=== PATIENT | female | born 1960 | race African-American/Black ===

== ENCOUNTER 2016-09-16 01:46 | Emergency (ER) | payer MEDICAID ==
[~2016-09-16] VITALS: Ht 160 cm; Wt 61.2 kg
[~2016-09-16 01:46] MED LIST: COGENTIN1 MG ORAL; HALOPERIDOL1 MG ORAL; HYDROCODON-ACE1 EA15 ORAL; NORCO 5-325 TA1 EACH ORAL; TRAMADOL HCL50 MG ORAL
[2016-09-16 01:55] VITALS: BP 128/74
[2016-09-16] MEDS ORDERED: CYCLOBENZAPRINE10 MG ORAL (03:45)
[2016-09-16] MEDS ORDERED: Cyclobenzaprine 10mg Tab ORAL ONE (03:45)
[2016-09-16 03:50] VITALS: BP 122/76
--- NOTE | 2016-09-16 03:50 | Emergency Room Report ---
History of Present Illness General Chief Complaint: Pain Source: Patient Present Illness HPI [id number] presents with "pain to legs" for "long time". States she had a cardiac cath at outside hospital, developed blood clot in right groin, had clot removed , but states she has had leg pain since. has been taking tylenol with no improvement. States she cant have ibuprofen. States she has "a 100 of robaxin at home" and "that doesnt work either." States allergy to toradol but not sure what the allergy is. States "I've been here a bunch of times before and always got [place]." Review of EMR does indicate previous Rx for Livingston from here. Denies calf swelling or needing to be on AC previously for DVT/PE. Denies fever /chills, rash to lower extremities. Specific request made for norco. Allergies: Coded Allergies: KETOROLAC (Verified Allergy, Severe, 07/25/15) PENICILLINS (Verified Allergy, Severe, 07/25/15) IODINE (Verified Allergy, Intermediate, 07/25/15) TRAMADOL (Verified Allergy, Unknown, 08/22/15) Patient History Past Medical History: none Past Surgical History: none Pertinent Family History: none Social History: Denies: alcohol use, drug use, smoking Now: No Immunizations: UTD Reviewed Nursing Documentation: PMH: Agreed, PSxH: Agreed Nursing Documentation-PMH Hx Cardiac Problems: Yes - CAD Hx Hypertension: Yes Hx Pacemaker: No Hx Asthma: No - Bronchitis Hx COPD: No Hx Diabetes: Yes Hx Cancer: No Hx Gastrointestinal Problems: No Hx Dialysis: No Hx Neurological Problems: No Hx Cerebrovascular Accident: No Hx Seizures: Yes Review of Systems All Other Systems: negative except mentioned in HPI Physical Exam Vital Signs Date Time Temp Pulse Resp B/P Pulse Ox O2 Delivery O2 Flow Rate FiO2 09/16/16 01:49 98.4 94 18 132/73 100 Room Air Sp02 EP Interpretation: reviewed, normal General Appearance: normal inspection, well appearing, no apparent distress, alert Head: atraumatic ENT: normal ENT inspection, hearing grossly normal, normal voice Neck: normal inspection, full range of motion, supple, no bony tend Respiratory: normal inspection Cardiovascular #1: regular rate, rhythm, no edema Gastrointestinal: normal inspection, normal bowel sounds, non tender, soft, no guarding, no hernia Genitourinary: no CVA tenderness Musculoskeletal: normal inspection, back normal, normal range of motion, Liv' s Sign negative Neurologic: normal inspection, alert, oriented x3, responsive, gamma ray operator III-XII nml as tested, motor strength/tone normal, speech normal Psychiatric: normal inspection, judgement/insight normal, mood/affect normal Skin: normal inspection, normal color, no rash Lymphatic: normal inspection Medical Decision Making Diagnostic Impression: Primary Impression: Pain Additional Impressions: Chronic pain Qualified Codes: G89.29 - Other chronic pain Drug-seeking behavior ER Course 55 YO F with chronic pain. VSS. Afebrile. Multiple alleged allergies to common analgesics Specific request made for [place] After much discussion, patient agreed to try flexeril but when RN went to give, patient refused med, took Rx for Flexeril and left ED We encouraged her to go to Pain electronics specialist appt this week DC home Last Vital Signs Date Time Temp Pulse Resp B/P Pulse Ox O2 Delivery O2 Flow Rate FiO2 09/16/16 01:55 98.2 79 17 128/74 100 Room Air Status: improved Disposition: HOME, SELF-CARE Condition: Improved Scripts Cyclobenzaprine Hcl* (FLEXERIL*) 10 Mg Tablet 10 MG ORAL BID Y for Muscle Spasm, #20 TAB Prov: MAXWELL LIZAMA M.D. 09/16/16 Referrals: [facility],REFERRING (PCP) Patient Instructions: Chronic Pain Additional Instructions: - STOP taking Tylenol - Take Flexeril twice a day for pain but do NOT drive or operate machinery while taking - Please go to your pain career specialist appt on Monday MAXWELL LIZAMA M.D. Sep 16, 2016 03:50
== END 2016-09-16 03:50 | disposition home or self-care (01) ==
LOC: EMR 02:12
DX: M79.605 Pain in left leg (principal); M79.604 Pain in right leg; G89.29 Other chronic pain; Z76.5 Malingerer [conscious simulation]; Z88.0 Allergy status to penicillin; Z91.09 Other allergy status, other than to drugs and biological substances; I25.10 Atherosclerotic heart disease of native coronary artery without angina pectoris; I10 Essential (primary) hypertension; E11.9 Type 2 diabetes mellitus without complications
CPT/HCPCS: 99283

== ENCOUNTER 2017-03-11 17:23 | Emergency (ER) | payer MEDICAID ==
[~2017-03-11] VITALS: Ht 165.1 cm; Wt 59.0 kg
[~2017-03-11 17:23] MED LIST changes: +CYCLOBENZAPRINE10 MG ORAL
[2017-03-11 17:49] VITALS: BP 144/68
[2017-03-11 19:16] VITALS: BP 144/68
[2017-03-11] MEDS ORDERED: Tylenol #3 tab (300mg/30mg) ORAL ONE (20:15)
[2017-03-11 20:55] LABS: BASOPHILS % (AUTO) 2.2 % (0.0-2.0); EOSINOPHILS % (AUTO) 1.2 % (0.0-3.0); LYMPHOCYTES % (AUTO) 47.4 % (20.0-45.0); MEAN CORPUSCULAR HEMOGLOBIN 33.1 PG (27.0-31.0); MEAN CORPUSCULAR HGB CONC 34.5 G/DL (32.0-36.0); MEAN CORPUSCULAR VOLUME 96 FL (80-99); MEAN PLATELET VOLUME 6.7 FL (6.5-10.1); MONOCYTES % (AUTO) 9.9 % (1.0-10.0); NEUTROPHILS % (AUTO) 39.2 % (45.0-75.0); PLATELET COUNT 183 K/UL (150-450); RED BLOOD COUNT 3.35 M/UL (4.20-5.40); RED CELL DISTRIBUTION WIDTH 12.9 % (11.6-14.8); WHITE BLOOD COUNT 5.8 K/UL (4.8-10.8)
[2017-03-11 21:15] VITALS: BP 138/64
[2017-03-11] MEDS ORDERED: Metoclopramide 10mg/10ml Liq ORAL ONE (21:15)
[2017-03-11 21:35] LABS: ACETAMINOPHEN < 10 ug/mL (10-30); ALANINE AMINOTRANSFERASE 12 U/L (3-33); ALBUMIN/GLOBULIN RATIO 1.2 (1.0-2.7); ALCOHOL < 10 mg/dL; ANION GAP 14 (5-15); ASPARTATE AMINO TRANSFERASE 15 U/L (5-40); CALCIUM 8.7 mg/dL (8.6-10.2); CARBON DIOXIDE 22 mEQ/L (20-30); CHLORIDE 101 mEQ/L (98-107); CREATININE 1.5 mg/dL (0.5-0.9); GLOMERULAR FILTRATION RATE 43.4 mL/min (>60); HEMOLYSIS 6; POTASSIUM 4.5 mEQ/L (3.4-4.9); SODIUM 137 mEQ/L (135-145); TOTAL PROTEIN 6.5 g/dL (6.6-8.7)
--- NOTE | 2017-03-11 22:14 | Emergency Room Report ---
History of Present Illness General Chief Complaint: Behavioral Complaint Source: Patient, EMS (AUDELIA DUTTA) Present Illness HPI The patient is a 56-year-old female brought in by ambulance in custody for hallucinations and homicidal ideation. She states that she is hearing voices to hurt others. She also admits to a 10 out of 10 total body pain but denies any injury. She denies psychiatric history. She denies drug use. She denies symptoms including nausea, vomiting, fever, chills, chest pain, shortness of breath (AUDELIA DUTTA.AJa) Allergies: Coded Allergies: KETOROLAC (Verified Allergy, Severe, 07/25/15) PENICILLINS (Verified Allergy, Severe, 07/25/15) IODINE (Verified Allergy, Intermediate, 07/25/15) TRAMADOL (Verified Allergy, Unknown, 08/22/15) Uncoded Allergies: TORADOL RISPIRADOL PCN IODINE (Allergy, Unknown, 03/11/17) Patient History Past Medical History: see triage record Pertinent Family History: none Reviewed Nursing Documentation: PMH: Agreed, PSxH: Agreed (AUDELIA DUTTA PJaAJa) Nursing Documentation-PMH Hx Cardiac Problems: Yes - CAD Hx Hypertension: Yes Hx Pacemaker: No Hx Asthma: No - Bronchitis Hx COPD: No Hx Diabetes: Yes Hx Cancer: No Hx Gastrointestinal Problems: No Hx Dialysis: No History Of Psychiatric Problem: Yes Hx Neurological Problems: No Hx Cerebrovascular Accident: No Hx Seizures: Yes (AUDELIA DUTTA P.AJa) Review of Systems All Other Systems: negative except mentioned in HPI (AUDELIA DUTTA P.AJa) Physical Exam Vital Signs Date Time Temp Pulse Resp B/P Pulse Ox O2 Delivery O2 Flow Rate FiO2 03/11/17 17:13 99.0 96 18 144/68 99 Room Air Sp02 EP Interpretation: reviewed, normal General Appearance: no apparent distress, alert, GCS 15, non-toxic Head: normocephalic, atraumatic Eyes: bilateral eye EOMI, bilateral eye PERRL ENT: hearing grossly normal, normal pharynx, no angioedema, normal voice Neck: full range of motion, supple/symm/no masses Respiratory: chest non-tender, lungs clear, normal breath sounds, speaking full sentences Cardiovascular #1: regular rate, rhythm, no edema Gastrointestinal: normal bowel sounds, non tender, soft, non-distended, no guarding, no rebound Musculoskeletal: back normal, gait/station normal, normal range of motion, non- tender Neurologic: alert, oriented x3, responsive, motor strength/tone normal, sensory intact, speech normal Psychiatric: judgement/insight normal, memory normal, mood/affect normal, no suicidal/homicidal ideation Skin: normal color, no rash, warm/dry, well hydrated (AUDELIA DUTTA) Medical Decision Making PA Attestation Dr. Matt is my supervising physician. Patient management was discussed with my supervising physician (AUDELIA DUTTA) Diagnostic Impression: Primary Impression: Behavioral disorder ER Course The patient is a 56-year-old female presenting for homicidal ideation and auditory hallucinations Differential diagnoses considered but not limited to suicidal ideation, homicidal ideation, depression, psychosis, drug abuse PE unremarkable. NAD. Pt is resting. RRR. Lungs CTA bilat Labs significant for hyperglycemia and + cocaine. She is given subq insulin. Tylenol #3 given for pain. The patient is on a 5150 placed by police and we will attempt to transfer patient to psychiatric facility and/or consult our psychiatrist. This patient is signed out to Dr. Diaz at this time Laboratory Tests Test 03/11/17 18:25 03/11/17 20:35 Urine Opiates Screen Negative (NEGATIVE) Urine Barbiturates Screen Negative (NEGATIVE) Phencyclidine (PCP) Screen Negative (NEGATIVE) Urine Amphetamines Screen Negative (NEGATIVE) Urine Benzodiazepines Screen Negative (NEGATIVE) Urine Cocaine Screen Positive (NEGATIVE) H Urine Marijuana (THC) Screen Negative (NEGATIVE) White Blood Count 5.8 K/UL (4.8-10.8) Red Blood Count 3.35 M/UL (4.20-5.40) L Hemoglobin 11.1 G/DL (12.0-16.0) L Hematocrit 32.1 % (37.0-47.0) L Mean Corpuscular Volume 96 FL (80-99) Mean Corpuscular Hemoglobin 33.1 PG (27.0-31.0) H Mean Corpuscular Hemoglobin Concent 34.5 G/DL (32.0-36.0) Red Cell Distribution Width 12.9 % (11.6-14.8) Platelet Count 183 K/UL (150-450) Mean Platelet Volume 6.7 FL (6.5-10.1) Neutrophils (%) (Auto) 39.2 % (45.0-75.0) L Lymphocytes (%) (Auto) 47.4 % (20.0-45.0) H Monocytes (%) (Auto) 9.9 % (1.0-10.0) Eosinophils (%) (Auto) 1.2 % (0.0-3.0) Basophils (%) (Auto) 2.2 % (0.0-2.0) H Sodium Level 137 mEQ/L (135-145) Potassium Level 4.5 mEQ/L (3.4-4.9) Chloride Level 101 mEQ/L (98-107) Carbon Dioxide Level 22 mEQ/L (20-30) Anion Gap 14 (5-15) Blood Urea Nitrogen 39 mg/dL (7-23) H Creatinine 1.5 mg/dL (0.5-0.9) H Estimate Glomerular Filtration Rate 43.4 mL/min (>60) Glucose Level 328 mg/dL (74-106) H Calcium Level 8.7 mg/dL (8.6-10.2) Total Bilirubin < 0.2 mg/dL (0.0-1.2) Aspartate Amino Transferase (AST) 15 U/L (5-40) Alanine Aminotransferase (ALT) 12 U/L (3-33) Alkaline Phosphatase 169 U/L (35-104) H Total Protein 6.5 g/dL (6.6-8.7) L Albumin 3.6 g/dL (3.5-5.2) Globulin 2.9 g/dL Albumin/Globulin Ratio 1.2 (1.0-2.7) Salicylates Level < 1 mg/dL (10-30) L Acetaminophen Level < 10 ug/mL (10-30) L Serum Alcohol < 10 mg/dL Lab Results Impression CBC unremarkable. No leukocytosis. CMP shows hyperglycemia and elevated BUN/Cr Drug screen positive for cocaine (AUDELIA DUTTA P.A.) ER Course Patient was endorsed to me for the psychiatric evaluation the patient after a being placed on a 5150 by police. The patient was noted to have a urine tox screen which was positive for substance. The patient was given Ativan for agitation. Patient was seen by Dr. Grey and was cleared for discharge by her. Patient was given referral for placement (Solomon White) Last Vital Signs Date Time Temp Pulse Resp B/P Pulse Ox O2 Delivery O2 Flow Rate FiO2 03/11/17 17:49 99.0 96 18 144/68 99 Room Air Status: improved (AUDELIA DUTTA) Status: improved (Solomon White) Disposition: HOME, SELF-CARE Condition: Stable Signed Out To: Dr. Diaz (AUDELIA DUTTA) Referrals: [facility],REFERRING (PCP) AUDELIA DUTTA Mar 11, 2017 22:14 Solomon White Mar 12, 2017 10:28
[2017-03-11 23:45] VITALS: BP 144/66
[2017-03-12 01:18] VITALS: BP 147/69
[2017-03-12 03:33] VITALS: BP 137/70
[2017-03-12 05:21] VITALS: BP 111/66
[2017-03-12] MEDS ORDERED: Acetaminophen 500mg (ES) tab ORAL ONE (05:45)
[2017-03-12 07:05] VITALS: BP 118/76
[2017-03-12] MEDS ORDERED: LORazepam 1mg tab ORAL ONE (07:30)
[2017-03-12 10:20] VITALS: BP 156/70
--- NOTE | 2017-03-12 14:56 | Consultation ---
History of Present Illness General Chief Complaint: Behavioral Complaint Present Illness HPI The patient is a 56-year-old female brought in by ambulance in custody for hallucinations and homicidal ideation. She states that she is hearing voices to hurt others. during the eval the pt stated that she is interested in placement and would not go to the house she is currently living. the pt was given housing info. the pt was not endorsing psychotic sxs. she was told to cont taking her meds and see her psychiatrist. Allergies: Coded Allergies: KETOROLAC (Verified Allergy, Severe, 07/25/15) PENICILLINS (Verified Allergy, Severe, 07/25/15) IODINE (Verified Allergy, Intermediate, 07/25/15) TRAMADOL (Verified Allergy, Unknown, 08/22/15) Uncoded Allergies: TORADOL RISPIRADOL PCN IODINE (Allergy, Unknown, 03/11/17) Medication History Scheduled Benztropine Mesylate (Cogentin 1mg*), 1 MG ORAL DAILY, (Reported) Haloperidol* (Haldol*), 1 MG ORAL EVERY 6 HOURS, (Reported) Scheduled PRN Cyclobenzaprine Hcl* (Flexeril*), 10 MG ORAL BID PRN for Muscle Spasm Hydrocodone Bit/Acetaminophen 5-325* ([place] 5-325*), 1 TAB ORAL Q6H PRN for For Pain Hydrocodone Bit/Acetaminophen 5-325* ([place] 5-325*), 1 TAB ORAL Q6H PRN for For Pain Hydrocodone Bit/Acetaminophen 5-325* ([place] 5-325*), 1 TAB ORAL Q6H PRN for For Pain Hydrocodone/Acetaminophen 5-325* (Hydrocodone/Acetaminophen 5-325*), 1 TAB ORAL Q4H PRN for For Pain, (Reported) Tramadol Hcl* (Ultram*), 50 MG ORAL Q6H PRN for For Pain, (Reported) Patient History History Provided By: Patient, Medical Record, PMD Healthcare decision maker Resuscitation status Advanced Directive on File Past Medical/Surgical History Past Medical/Surgical History: (1) Wound dehiscence (2) Postoperative pain (3) Encounter for wound re-check (4) Opioid dependence (5) Chronic pain (6) Pain Review of Systems Psychiatric: Reports: anxiety, depressed feelings, emotional problems, prior hx , see HPI Physical Exam General Appearance: no apparent distress, alert, thin Neurologic: alert, oriented x 3, responsive, normal mood/affect Last 24 Hour Vital Signs Date Time Temp Pulse Resp B/P Pulse Ox O2 Delivery O2 Flow Rate FiO2 03/12/17 10:20 108 18 156/70 99 03/12/17 10:20 98.2 108 18 156/70 99 Room Air 03/12/17 07:05 98.3 92 12 118/76 98 Room Air 03/12/17 05:21 98.2 77 18 111/66 96 Room Air 03/12/17 03:33 97.9 86 16 137/70 100 Room Air 03/12/17 01:18 97.7 84 16 147/69 99 Room Air 03/11/17 23:45 98.4 89 18 144/66 99 Room Air 03/11/17 21:23 99.0 03/11/17 21:15 98.7 92 19 138/64 100 Room Air 03/11/17 19:16 99.0 96 18 144/68 99 Room Air 03/11/17 17:49 99.0 96 18 144/68 99 Room Air 03/11/17 17:13 99.0 96 18 144/68 99 Room Air Intake and Output 03/11/17 03/12/17 19:00 07:00 Intake Total 100 ml Balance 100 ml Intake Oral 100 ml # Voids 1 Laboratory Tests Test 03/11/17 18:25 03/11/17 20:35 Urine Opiates Screen Negative (NEGATIVE) Urine Barbiturates Screen Negative (NEGATIVE) Phencyclidine (PCP) Screen Negative (NEGATIVE) Urine Amphetamines Screen Negative (NEGATIVE) Urine Benzodiazepines Screen Negative (NEGATIVE) Urine Cocaine Screen Positive (NEGATIVE) H Urine Marijuana (THC) Screen Negative (NEGATIVE) White Blood Count 5.8 K/UL (4.8-10.8) Red Blood Count 3.35 M/UL (4.20-5.40) L Hemoglobin 11.1 G/DL (12.0-16.0) L Hematocrit 32.1 % (37.0-47.0) L Mean Corpuscular Volume 96 FL (80-99) Mean Corpuscular Hemoglobin 33.1 PG (27.0-31.0) H Mean Corpuscular Hemoglobin Concent 34.5 G/DL (32.0-36.0) Red Cell Distribution Width 12.9 % (11.6-14.8) Platelet Count 183 K/UL (150-450) Mean Platelet Volume 6.7 FL (6.5-10.1) Neutrophils (%) (Auto) 39.2 % (45.0-75.0) L Lymphocytes (%) (Auto) 47.4 % (20.0-45.0) H Monocytes (%) (Auto) 9.9 % (1.0-10.0) Eosinophils (%) (Auto) 1.2 % (0.0-3.0) Basophils (%) (Auto) 2.2 % (0.0-2.0) H Sodium Level 137 mEQ/L (135-145) Potassium Level 4.5 mEQ/L (3.4-4.9) Chloride Level 101 mEQ/L (98-107) Carbon Dioxide Level 22 mEQ/L (20-30) Anion Gap 14 (5-15) Blood Urea Nitrogen 39 mg/dL (7-23) H Creatinine 1.5 mg/dL (0.5-0.9) H Estimat Glomerular Filtration Rate 43.4 mL/min (>60) Glucose Level 328 mg/dL (74-106) H Calcium Level 8.7 mg/dL (8.6-10.2) Total Bilirubin < 0.2 mg/dL (0.0-1.2) Aspartate Amino Transf (AST/SGOT) 15 U/L (5-40) Alanine Aminotransferase (ALT/SGPT) 12 U/L (3-33) Alkaline Phosphatase 169 U/L (35-104) H Total Protein 6.5 g/dL (6.6-8.7) L Albumin 3.6 g/dL (3.5-5.2) Globulin 2.9 g/dL Albumin/Globulin Ratio 1.2 (1.0-2.7) Salicylates Level < 1 mg/dL (10-30) L Acetaminophen Level < 10 ug/mL (10-30) L Serum Alcohol < 10 mg/dL Height (Feet): 5 Height (Inches): 5.00 Weight (Pounds): 130 Assessment/Plan Status: stable Assessment/Plan schizoaffective bipolar by hx the pt is not at imminent dts/sto the pt will be discharged and she was given referrals Ramon Grey M.D. Mar 12, 2017 14:56
== END 2017-03-12 10:20 | disposition home or self-care (01) ==
LOC: EDBD 17:23 → EMR 17:46
DX: F91.9 Conduct disorder, unspecified (principal); R44.0 Auditory hallucinations; R45.850 Homicidal ideations; I25.10 Atherosclerotic heart disease of native coronary artery without angina pectoris; I10 Essential (primary) hypertension; E11.9 Type 2 diabetes mellitus without complications
CPT/HCPCS: 36415; 80053; 80300; 80329; 82962; 85025; 99283; J1815

== ENCOUNTER 2018-01-21 15:20 | Emergency (ER) | payer MEDICAID ==
[~2018-01-21] VITALS: Ht 160 cm; Wt 49.0 kg
[2018-01-21] MEDS ORDERED: Norco 5mg/325mg tab ORAL ONE (16:15)
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
[2018-01-21] MEDS ORDERED: LIDODERM700 M1 TOPIC (16:38)
[2018-01-21] MEDS ORDERED: ROBAXIN-750750 MG PO (16:38)
[2018-01-21 17:06] VITALS: BP 127/65
[2018-01-21 17:28] VITALS: BP 127/65
--- NOTE | 2018-01-22 17:52 | Diagnostic Imaging Report ---
Indication: Pain Technique: XRAY Pelvis 1v Comparison: Correlation made to images of the osseous pelvis from CT of the abdomen and pelvis 12/23/2011 Findings: Bones are demineralized. No definite/displaced acute fractures identified. Hip joints, sacroiliac joints and symphysis pubis are maintained. There are degenerative changes in the lower lumbar spine. Surgical clips noted in the right inguinal region. Impression: Osteopenia. No plain film evidence of acute fracture or dislocation.
--- NOTE | 2018-01-22 17:53 | Diagnostic Imaging Report ---
Indication: Pain Technique: XRAY Hip Routine 2v+ R Comparison: Correlation made to images of the osseous pelvis/right hip from CT of the abdomen and pelvis 12/23/2011 Findings: No plain film evidence of acute fracture or dislocation. Bones are demineralized. There are surgical clips in the right inguinal region. Correlate with surgical history. Pelvic phleboliths are noted. Impression: No plain film evidence of acute fracture.
== END 2018-01-21 17:28 | disposition home or self-care (01) ==
LOC: EMR 16:37
DX: S70.01XA Contusion of right hip, initial encounter (principal); S30.0XXA Contusion of lower back and pelvis, initial encounter; V43.92XA Unspecified car occupant injured in collision with other type car in traffic accident, initial encounter; Y92.481 Parking lot as the place of occurrence of the external cause; I25.10 Atherosclerotic heart disease of native coronary artery without angina pectoris; I10 Essential (primary) hypertension; E11.9 Type 2 diabetes mellitus without complications; Z88.0 Allergy status to penicillin; Z88.5 Allergy status to narcotic agent
CPT/HCPCS: 72170; 99284

== ENCOUNTER 2018-01-29 14:08 | Emergency (ER) | payer MEDICAID ==
[~2018-01-29] VITALS: Ht 162.6 cm; Wt 60.8 kg
[~2018-01-29 14:08] MED LIST changes: +LIDODERM700 M1 TOPIC; +ROBAXIN-750750 MG PO
[2018-01-29] MEDS ORDERED: Morphine Sulfate 2mg/ml Inj IM ONE (14:45)
[2018-01-29] MEDS ORDERED: Methocarbamol 750mg tab ORAL ONE (15:15)
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
[2018-01-29] MEDS ORDERED: TYLENOL EXTRA500 MG ORAL (16:18)
[2018-01-29] MEDS ORDERED: LIDODERM700 M1 TOPIC (16:18)
[2018-01-29] MEDS ORDERED: ROBAXIN-750750 MG PO (16:18)
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
[2018-01-29 18:31] VITALS: BP 136/74
[2018-01-29 18:33] VITALS: BP 136/74
== END 2018-01-29 16:30 | disposition home or self-care (01) ==
LOC: EMR 14:48
DX: G89.29 Other chronic pain (principal); M54.9 Dorsalgia, unspecified; I10 Essential (primary) hypertension; I25.10 Atherosclerotic heart disease of native coronary artery without angina pectoris; E11.9 Type 2 diabetes mellitus without complications; Z88.0 Allergy status to penicillin; Z88.8 Allergy status to other drugs, medicaments and biological substances
CPT/HCPCS: 72131; 72192; 96372; 99284; J2270

== ENCOUNTER 2018-02-05 20:41 | Emergency (ER) | payer MEDICAID ==
[~2018-02-05] VITALS: Ht 162.6 cm; Wt 54.4 kg
[~2018-02-05 20:41] MED LIST changes: +TYLENOL EXTRA500 MG ORAL
[2018-02-05 21:10] VITALS: BP 150/57
[2018-02-05] MEDS ORDERED: Methocarbamol 750mg tab ORAL ONE (21:15)
[2018-02-05] MEDS ORDERED: Morphine Sulfate 2mg/ml Inj IM ONE (21:15)
[2018-02-05] MEDS ORDERED: NORCO 5-325 TA1 EACH ORAL (22:08)
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
[2018-02-05 22:53] VITALS: BP 144/62
[2018-02-05 22:54] VITALS: BP 144/62
== END 2018-02-05 23:08 | disposition home or self-care (01) ==
LOC: EMR 21:10
DX: G89.29 Other chronic pain (principal); M25.551 Pain in right hip; F11.20 Opioid dependence, uncomplicated; I10 Essential (primary) hypertension; E11.9 Type 2 diabetes mellitus without complications
CPT/HCPCS: 96372; 99283; J2270

== ENCOUNTER 2018-02-20 14:25 | Emergency (ER) | payer MEDICAID ==
[~2018-02-20] VITALS: Ht 162.6 cm; Wt 63.5 kg
[2018-02-20 14:41] VITALS: BP 141/62
[2018-02-20] MEDS ORDERED: Meclizine 25mg tab ORAL ONE (15:15)
--- NOTE | 2018-02-20 15:31 | Emergency Room Report ---
History of Present Illness General Chief Complaint: General Complaint Source: Patient (Caty Mehta) Present Illness HPI 57-year-old female presents to the emergency department complaining of 10 out of 10 in severity right-sided rib cage pain. Patient reports she has had intermittent episodes of dizziness which she describes as the room spinning around her which causes her to be nauseated. Patient states that she lost her balance and hit the right side of her rib cage this morning. Pt states pain is exacerbated with deep breaths. Patient denies unilateral weakness, slurred speech, recent URI, or recent head trauma. Denies cough. Denies CP, Palpitations, LOC, AMS, Changes in Vision, paresthesias, or a sudden severe headache. (Caty Mehta) Allergies: Coded Allergies: KETOROLAC (Verified Allergy, Severe, 07/25/15) PENICILLINS (Verified Allergy, Severe, 07/25/15) IODINE (Verified Allergy, Intermediate, 07/25/15) HALOPERIDOL (Verified Allergy, Unknown, 01/21/18) NAPROXEN (Verified Allergy, Unknown, 02/20/18) RISPERIDONE (Verified Allergy, Unknown, 02/05/18) TRAMADOL (Verified Allergy, Unknown, 08/22/15) Uncoded Allergies: TORADOL RISPIRADOL PCN IODINE (Allergy, Unknown, 03/11/17) Patient History Past Medical History: see triage record Past Surgical History: none Pertinent Family History: none Now: No Immunizations: UTD Reviewed Nursing Documentation: PMH: Agreed; PSxH: Agreed (Caty Mehta) Nursing Documentation-PMH Past Medical History: No History, Except For Hx Cardiac Problems: Yes Hx Hypertension: Yes Hx Pacemaker: No Hx Asthma: No - Bronchitis Hx COPD: No Hx Diabetes: Yes Hx Cancer: No Hx Gastrointestinal Problems: No Hx Dialysis: No Hx Neurological Problems: No Hx Cerebrovascular Accident: No Hx Seizures: Yes (Caty Mehta) Review of Systems All Other Systems: negative except mentioned in HPI (Caty Mehta) Physical Exam Vital Signs Date Time Temp Pulse Resp B/P (MAP) Pulse Ox O2 Delivery O2 Flow Rate FiO2 02/20/18 14:35 97.6 61 18 141/62 97 Room Air 97.5 Sp02 EP Interpretation: reviewed, normal General Appearance: no apparent distress, alert, GCS 15, non-toxic Head: normocephalic, atraumatic Eyes: bilateral eye PERRL, bilateral eye other - no nystagmus, moderate cataract of the left eye, no vision in left eye. ENT: hearing grossly normal, normal voice Neck: full range of motion, no meningismus, no bony tend Respiratory: lungs clear, normal breath sounds, speaking full sentences, other - ttp to the anterior right lower rib cage, no flail chest Cardiovascular #1: regular rate, rhythm, no edema Gastrointestinal: normal bowel sounds, non tender, soft Rectal: deferred Genitourinary: normal inspection Musculoskeletal: back normal, gait/station normal, normal range of motion, tender - ant. Right lower rib cage. Neurologic: alert, oriented x3, responsive, motor strength/tone normal, sensory intact, cerebellar normal, normal gait, speech normal, other - no ataxia , no nystagmus., grossly normal Psychiatric: judgement/insight normal Skin: normal color, no rash, warm/dry, well hydrated, other - no bruises (Caty Mehta) Medical Decision Making PA Attestation Dr. Vera is my supervising Physician whom patient management has been discussed with. (Caty Mehta) Diagnostic Impression: Primary Impression: Rib pain on right side Additional Impressions: Episode of dizziness Nausea UTI (urinary tract infection) Qualified Codes: N30.01 - Acute cystitis with hematuria ER Course 57-year-old female presents to the emergency department complaining of 10 out of 10 in severity right-sided rib cage pain. Patient reports she has had intermittent episodes of dizziness which she describes as the room spinning around her which causes her to be nauseated. Patient states that she lost her balance and hit the right side of her rib cage this morning. Pt states pain is exacerbated with deep breaths. Patient denies unilateral weakness, slurred speech, recent URI, or recent head trauma. Denies cough. Denies CP, Palpitations, LOC, AMS, Changes in Vision, paresthesias, or a sudden severe headache. Ddx considered but are not limited to Mnire's, BPPV, labrinitis, cerebellar stroke, hypovolemia, cardiac cause, rib contusion, rib fx just to name a few. Vital signs: are WNL, pt. is afebrile H&PE are most consistent with : musculoskeletal injury right lower rib cage. normal neurological exam, no ataxia, nystagmus, able to perform heel to toe. ORDERS: -CMP: WNL -Troponins, CK-MB, CK- all negative -CXR:. Unremarkable -X-ray Right Rib series: negative for fx. ED INTERVENTIONS: -Meclizine Pt reports sx have resolved, requesting to be D/C prior to official radiology read of x-rays. . pt. given ED return precautions and instructions to follow up with PMD. DISCHARGE: At this time pt. is stable for d/c to home. Will provide printed patient care instructions, and any necessary prescriptions. Care plan and follow up instructions have been discussed with the patient prior to discharge. UA is positive for UTI. pt. called on 02/22/18 to [facility]. Labs Test 02/20/18 16:30 White Blood Count 5.7 K/UL (4.8-10.8) Red Blood Count 3.78 M/UL (4.20-5.40) Hemoglobin 12.1 G/DL (12.0-16.0) Hematocrit 35.9 % (37.0-47.0) Mean Corpuscular Volume 95 FL (80-99) Mean Corpuscular Hemoglobin 32.0 PG (27.0-31.0) Mean Corpuscular Hemoglobin Concent 33.7 G/DL (32.0-36.0) Red Cell Distribution Width 12.4 % (11.6-14.8) Platelet Count 191 K/UL (150-450) Mean Platelet Volume 6.8 FL (6.5-10.1) Neutrophils (%) (Auto) 43.6 % (45.0-75.0) Lymphocytes (%) (Auto) 48.0 % (20.0-45.0) Monocytes (%) (Auto) 6.1 % (1.0-10.0) Eosinophils (%) (Auto) 0.6 % (0.0-3.0) Basophils (%) (Auto) 1.7 % (0.0-2.0) Urine Color Pale yellow Urine Appearance Slightly cloudy Urine pH 6 (4.5-8.0) Urine Specific [place] 1.010 (1.005-1.035) Urine Protein Negative (NEGATIVE) Urine Glucose (UA) Negative (NEGATIVE) Urine Ketones Negative (NEGATIVE) Urine Occult Blood 1+ (NEGATIVE) Urine Nitrite Negative (NEGATIVE) Urine Bilirubin Negative (NEGATIVE) Urine Urobilinogen Normal MG/DL (0.0-1.0) Urine Leukocyte Esterase 1+ (NEGATIVE) Urine RBC 2-4 /HPF (0 - 2) Urine WBC 5-10 /HPF (0 - 2) Urine Squamous Epithelial Cells Moderate /LPF (NONE/OCC) Urine Calcium Oxalate Crystals Few /LPF (NONE) Urine Bacteria Moderate /HPF (NONE) Sodium Level 139 MMOL/L (136-145) Potassium Level 4.8 MMOL/L (3.5-5.1) Chloride Level 106 MMOL/L (98-107) Carbon Dioxide Level 27 MMOL/L (21-32) Anion Gap 6 mmol/L (5-15) Blood Urea Nitrogen 26 mg/dL (7-18) Creatinine 1.0 MG/DL (0.55-1.30) Estimat Glomerular Filtration Rate > 60 mL/min (>60) Glucose Level 123 MG/DL (74-106) Calcium Level 8.8 MG/DL (8.5-10.1) Total Bilirubin 0.2 MG/DL (0.2-1.0) Aspartate Amino Transf (AST/SGOT) 15 U/L (15-37) Alanine Aminotransferase (ALT/SGPT) 23 U/L (12-78) Alkaline Phosphatase 142 U/L (46-116) Total Creatine Kinase 121 U/L (26-308) Troponin I 0.000 ng/mL (0.000-0.056) Total Protein 7.0 G/DL (6.4-8.2) Albumin 3.4 G/DL (3.4-5.0) Globulin 3.6 g/dL Albumin/Globulin Ratio 0.9 (1.0-2.7) (Caty Mehta) EKG Diagnostic Results EP Interpretation: Dr. Vera Rate: bradycardiac - 56 bpm Rhythm: NSR ST Segments: no acute changes - mild J-point elevation ASA given to the pt in ED: No PA Scribe Text This Interpretation was scribed by DAVID Mehta. (Caty Mehta) Chest X-Ray Diagnostic Results Chest X-Ray Diagnostic Results : Chest X-Ray Ordered: Yes # of Views/Limited/Complete: 1 View Indication: Chest Pain EP Interpretation: Yes PA Xray: Interpretation reviewed, by supervising MD, and agrees with findings. Interpretation: no consolidation, no effusion, no pneumothorax, no acute cardiopulmonary disease Impression: No acute disease Electronically Signed by: Caty Mehta PA-C (Caty Mehta) Other X-Ray Diagnostic Results Other X-Ray Diagnostic Results : X-Ray ordered: Right Rib series # of Views/Limited Vs Complete: 3 View Indication: Pain EP Interpretation: Yes PA Xray: Interpretation reviewed, by supervising MD, and agrees with findings. Interpretation: no dislocation, no soft tissue swelling, no fractures Impression: No acute disease Electronically Signed by: Caty Mehta PA-C (Caty Mehta) Last Vital Signs Date Time Temp Pulse Resp B/P (MAP) Pulse Ox O2 Delivery O2 Flow Rate FiO2 02/20/18 14:41 97.5 81 18 141/62 97 Room Air 97.5 (Caty Mehta) Reevaluation Impression UA with > 100K gr neg bacillus. Was contaminated specimen. Wait for sensitivities. E coli sensitive to all. Called patient and suggested either return or f/u with PMD for repeat urine (as was contaminated). (Sher Gutiérrez M.D.) Disposition: HOME, SELF-CARE Condition: Stable Scripts Cephalexin* (KEFLEX*) 500 Mg Capsule 500 MG ORAL EVERY 12 HOURS for 7 Days, #14 CAP 0 Refills Prov: Caty Mehta 02/22/18 Ondansetron* (ZOFRAN*) 4 Mg Tablet 4 MG ORAL DAILY PRN for Nausea & Vomiting, #3 TAB Prov: Caty Mehta 02/20/18 Meclizine Hcl* (MECLIZINE*) 25 Mg Tablet 25 MG ORAL THREE TIMES A DAY for 5 Days, #15 TAB Prov: Caty Mehta 02/20/18 Patient Instructions: Nausea and Vomiting, Adult, [id number], Rib Contusion Additional Instructions: Take medications as directed. Follow up with a Primary Care Provider in 3 days, even if your symptoms have resolved. --Please review list of primary care clinics, if you do not already have a primary care provider Return sooner to ED if new symptoms occur, or current symptoms become worse. - Please note that this Emergency Department Report was dictated using [employer] compliance director technology software, occasionally this can lead to erroneous entry secondary to interpretation by the dictation equipment. Caty Mehta Feb 20, 2018 15:31 Sher Gutiérrez M.D. Feb 22, 2018 08:56
--- NOTE | 2018-02-20 15:56 | Diagnostic Imaging Report ---
Indication: Chest pain Comparison: 09/27/2010 A single view chest radiograph was obtained. Findings: Cardiomediastinal appearance is within normal limits for age. Pulmonary vascularity is appropriate. The diaphragmatic contour is smooth and costophrenic angles are sharp. No pleural effusions are identified. The bones are unremarkable. Impression: No acute findings
[2018-02-20] MEDS ORDERED: Norco 5mg/325mg tab ORAL ONE (16:15)
[2018-02-20 16:43] LABS: BASOPHILS % (AUTO) 1.7 % (0.0-2.0); EOSINOPHILS % (AUTO) 0.6 % (0.0-3.0); HEMATOCRIT 35.9 % (37.0-47.0); HEMOGLOBIN 12.1 G/DL (12.0-16.0); MEAN CORPUSCULAR VOLUME 95 FL (80-99); MONOCYTES % (AUTO) 6.1 % (1.0-10.0); NEUTROPHILS % (AUTO) 43.6 % (45.0-75.0); PLATELET COUNT 191 K/UL (150-450); RED BLOOD COUNT 3.78 M/UL (4.20-5.40); RED CELL DISTRIBUTION WIDTH 12.4 % (11.6-14.8); WHITE BLOOD COUNT 5.7 K/UL (4.8-10.8)
[2018-02-20 16:44] LABS: BILIRUBIN, URINE NEGATIVE (NEGATIVE); COLOR,URINE PALE YELLOW; GLUCOSE, URINE (UA) NEGATIVE (NEGATIVE); KETONES,URINE NEGATIVE (NEGATIVE); LEUKOCYTE ESTERASE ,URINE 1+ (NEGATIVE); NITRITE,URINE NEGATIVE (NEGATIVE); PH,URINE 6 (4.5-8.0); PROTEIN,URINE NEGATIVE (NEGATIVE); UROBILINOGEN,URINE NORMAL MG/DL (0.0-1.0)
[2018-02-20 16:46] LABS: APPEARANCE,URINE SLIGHTLY CLOUDY
[2018-02-20 16:54] LABS: ANION GAP 6 mmol/L (5-15); BLOOD UREA NITROGEN 26 mg/dL (7-18); CALCIUM 8.8 MG/DL (8.5-10.1); CARBON DIOXIDE 27 MMOL/L (21-32); CHLORIDE 106 MMOL/L (98-107); POTASSIUM 4.8 MMOL/L (3.5-5.1); SODIUM 139 MMOL/L (136-145)
[2018-02-20 16:58] LABS: ALANINE AMINOTRANSFERASE 23 U/L (12-78); ALBUMIN 3.4 G/DL (3.4-5.0); ALBUMIN/GLOBULIN RATIO 0.9 (1.0-2.7); ALKALINE PHOSPHATASE 142 U/L (46-116); ASPARTATE AMINO TRANSFERASE 15 U/L (15-37); BILIRUBIN,TOTAL 0.2 MG/DL (0.2-1.0); CREATINE KINASE 121 U/L (26-308)
[2018-02-20] MEDS ORDERED: MECLIZINE HCL25 MG ORAL (17:25)
[2018-02-20] MEDS ORDERED: ZOFRAN4 M3 ORAL (17:25)
[2018-02-20 17:53] VITALS: BP 141/62
--- NOTE | 2018-02-21 08:41 | Diagnostic Imaging Report ---
Indication: Pain Technique: 3 views of the right ribs Comparison: none Findings: No fractures. No evidence of pneumothorax. Cholecystectomy clips are incidentally noted Impression: Negative
[2018-02-22] MEDS ORDERED: CEPHALEXIN500 MG ORAL (13:51)
--- NOTE | 2018-02-22 17:39 | Cardiology Report ---
APPROVED REPORT EKG Measurement Heart [id number] Sinus bradycardia Possible Left atrial enlargement Left ventricular hypertrophy Abnormal ECG
== END 2018-02-20 17:54 | disposition home or self-care (01) ==
LOC: EMR 15:45
DX: R07.81 Pleurodynia (principal); R42 Dizziness and giddiness; R11.0 Nausea; N39.0 Urinary tract infection, site not specified; I10 Essential (primary) hypertension; E11.9 Type 2 diabetes mellitus without complications
CPT/HCPCS: 36415; 71045; 80053; 81003; 82550; 84484; 85025; 87086; 87181; 93005; 99284

== ENCOUNTER 2018-02-25 07:26 | Emergency (ER) | payer MEDICAID ==
[~2018-02-25] VITALS: Ht 162.6 cm; Wt 68.0 kg
[~2018-02-25 07:26] MED LIST changes: +CEPHALEXIN500 MG ORAL; +MECLIZINE HCL25 MG ORAL; +ZOFRAN4 M3 ORAL
[2018-02-25 07:45] VITALS: BP 152/66
--- NOTE | 2018-02-25 07:56 | Emergency Room Report ---
History of Present Illness General Chief Complaint: Abdominal Pain Source: Patient Present Illness HPI Patient is a 57-year-old female who presented after increased nausea and vomiting. The patient reports having prior history of gallbladder surgery as well as chronic pain. The she reports having normal bowel movements. She denies any black or bloody stools. She reports having been told that she needed return to the hospital for further evaluation. Patient was noted to have the recent the ER visit where she had a urinary tract infection. The patient denies current antibiotic use. Allergies: Coded Allergies: KETOROLAC (Verified Allergy, Severe, 07/25/15) PENICILLINS (Verified Allergy, Severe, 07/25/15) IODINE (Verified Allergy, Intermediate, 07/25/15) HALOPERIDOL (Verified Allergy, Unknown, 01/21/18) NAPROXEN (Verified Allergy, Unknown, 02/20/18) RISPERIDONE (Verified Allergy, Unknown, 02/05/18) TRAMADOL (Verified Allergy, Unknown, 08/22/15) Uncoded Allergies: TORADOL RISPIRADOL PCN IODINE (Allergy, Unknown, 03/11/17) Patient History Past Medical History: see triage record Last Menstrual Period: na Reviewed Nursing Documentation: PMH: Agreed; PSxH: Agreed Nursing Documentation-PMH Past Medical History: No History, Except For Hx Cardiac Problems: Yes Hx Hypertension: Yes Hx Pacemaker: No Hx COPD: No Hx Diabetes: Yes Hx Cancer: No Hx Gastrointestinal Problems: No Hx Dialysis: No Hx Neurological Problems: No Hx Cerebrovascular Accident: No Hx Seizures: Yes Review of Systems All Other Systems: negative except mentioned in HPI Physical Exam Vital Signs Date Time Temp Pulse Resp B/P (MAP) Pulse Ox O2 Delivery O2 Flow Rate FiO2 02/25/18 07:30 69 18 152/66 98 Room Air General Appearance: well appearing, no apparent distress, alert, non-toxic, Chronically Ill Head: normocephalic, atraumatic Eyes: bilateral eye other - 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 ENT: normal voice, other - decreased hearing Neck: full range of motion, supple Respiratory: lungs clear, no respiratory distress, speaking full sentences Cardiovascular #1: normal peripheral pulses, regular rate, rhythm, no edema Gastrointestinal: normal inspection, normal bowel sounds, non tender, soft Musculoskeletal: normal inspection, decreased range of mation Neurologic: alert, oriented x3, responsive, normal gait, speech normal, no pronator Psychiatric: mood/affect normal, other - slight motor agitation Skin: no rash Medical Decision Making Diagnostic Impression: Primary Impression: Chronic pain Additional Impressions: Opioid dependence UTI (urinary tract infection) Cocaine abuse ER Course Patient presented for abdominal pain. Differential diagnoses included ischemic bowel, appendicitis, perforated viscus, abdominal aortic aneurysm, inferior myocardial infarction, viral gastroenteritis. Patient has a benign exam and does not appear to require any further imaging or laboratory testing at this time. The urinalysis was ordered due to patient's recent questionable urinary tract infection. Patient decided she needed to leave prior to to testing results. The patient refused the GI cocktail. The patient was advised risk benefits alternatives of leaving AGAINST MEDICAL ADVICE and he indicated understanding and all questions are answered patient still continued want to leave and signed AGAINST MEDICAL ADVICE. Despite risks including but not limited to disability and worsening of current lifestyle.Patient was advised she could return at any time. Labs Test 02/25/18 07:30 Urine Color Pale yellow Urine Appearance Clear Urine pH 5 (4.5-8.0) Urine Specific [place] 1.015 (1.005-1.035) Urine Protein Negative (NEGATIVE) Urine Glucose (UA) Negative (NEGATIVE) Urine Ketones Negative (NEGATIVE) Urine Occult Blood 1+ (NEGATIVE) Urine Nitrite Negative (NEGATIVE) Urine Bilirubin Negative (NEGATIVE) Urine Urobilinogen Normal MG/DL (0.0-1.0) Urine Leukocyte Esterase 1+ (NEGATIVE) Urine RBC 0-2 /HPF (0 - 2) Urine WBC 5-10 /HPF (0 - 2) Urine Squamous Epithelial Cells Few /LPF (NONE/OCC) Urine Bacteria Few /HPF (NONE) Urine Opiates Screen Negative (NEGATIVE) Urine Barbiturates Screen Negative (NEGATIVE) Phencyclidine (PCP) Screen Negative (NEGATIVE) Urine Amphetamines Screen Negative (NEGATIVE) Urine Benzodiazepines Screen Negative (NEGATIVE) Urine Cocaine Screen Positive (NEGATIVE) Urine Marijuana (THC) Screen Negative (NEGATIVE) Last Vital Signs Date Time Temp Pulse Resp B/P (MAP) Pulse Ox O2 Delivery O2 Flow Rate FiO2 02/25/18 07:45 69 18 152/66 98 Room Air Status: unchanged Disposition: AGAINST MEDICAL ADVICE Condition: Stable Solomon White MD Feb 25, 2018 07:56
[2018-02-25] MEDS ORDERED: Dicyclomine 10mg Cap ORAL ONE (08:00)
[2018-02-25 08:32] LABS: APPEARANCE,URINE CLEAR; BILIRUBIN, URINE NEGATIVE (NEGATIVE); COLOR,URINE PALE YELLOW; GLUCOSE, URINE (UA) NEGATIVE (NEGATIVE); KETONES,URINE NEGATIVE (NEGATIVE); LEUKOCYTE ESTERASE ,URINE 1+ (NEGATIVE); NITRITE,URINE NEGATIVE (NEGATIVE); PH,URINE 5 (4.5-8.0); PROTEIN,URINE NEGATIVE (NEGATIVE); UROBILINOGEN,URINE NORMAL MG/DL (0.0-1.0)
[2018-02-25 08:51] VITALS: BP 152/66
== END 2018-02-25 09:20 | disposition left against medical advice (07) ==
LOC: EMR 07:35
DX: G89.29 Other chronic pain (principal); R10.9 Unspecified abdominal pain; N39.0 Urinary tract infection, site not specified; F11.20 Opioid dependence, uncomplicated; I10 Essential (primary) hypertension; E11.9 Type 2 diabetes mellitus without complications; Z88.0 Allergy status to penicillin; Z88.8 Allergy status to other drugs, medicaments and biological substances; Z91.041 Radiographic dye allergy status; Z88.5 Allergy status to narcotic agent
CPT/HCPCS: 80307; 81003; 99283

== ENCOUNTER 2018-03-15 16:27 | Emergency (ER) | payer MEDICAID ==
[~2018-03-15] VITALS: Ht 165.1 cm; Wt 72.6 kg
[2018-03-15] MEDS ORDERED: Tetanus/Diptheria/Pertussis Vaccine 0.5ml Syr IM ONE (16:45)
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
[2018-03-15] MEDS ORDERED: CLINDAMYCIN HC150 MG ORAL (16:50)
[2018-03-15] MEDS ORDERED: BACITRACIN-P28.35 GM TP (16:50)
[2018-03-15] MEDS ORDERED: BACTRIM DS TAB1 EAC1 ORAL (16:50)
[2018-03-15 16:56] VITALS: BP 124/70
[2018-03-15] MEDS ORDERED: Bacitracin Oint UD TOPIC ONE (17:00)
[2018-03-15 17:08] VITALS: BP 120/79
== END 2018-03-15 17:30 | disposition home or self-care (01) ==
LOC: EDBD 16:27 → EMR 17:30
DX: S31.159A Open bite of abdominal wall, unspecified quadrant without penetration into peritoneal cavity, initial encounter (principal); W54.0XXA Bitten by dog, initial encounter; Y93.89 Activity, other specified; Y92.89 Other specified places as the place of occurrence of the external cause; I10 Essential (primary) hypertension; Z23 Encounter for immunization; Z88.0 Allergy status to penicillin; Z88.8 Allergy status to other drugs, medicaments and biological substances
CPT/HCPCS: 90471; 90715; 99283

== ENCOUNTER 2018-04-21 20:17 | Emergency (ER) | payer MEDICAID ==
[~2018-04-21] VITALS: Ht 161.3 cm; Wt 64.4 kg
[~2018-04-21 20:17] MED LIST changes: +BACITRACIN-P28.35 GM TP; +BACTRIM DS TAB1 EAC1 ORAL; +CLINDAMYCIN HC150 MG ORAL
[2018-04-21 20:43] VITALS: BP 162/73
[2018-04-21] MEDS ORDERED: LIDOCAINE700 M1 TP (21:14)
[2018-04-21] MEDS ORDERED: ROBAXIN500 MG PO (21:14)
[2018-04-21] MEDS ORDERED: Acetaminophen 500mg (ES) tab ORAL ONE (21:15)
[2018-04-21 21:22] VITALS: BP 162/73
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
== END 2018-04-21 21:22 | disposition home or self-care (01) ==
LOC: EMR 21:00
DX: T14.90XA Injury, unspecified, initial encounter (principal); M79.661 Pain in right lower leg; V03.90XA Pedestrian on foot injured in collision with car, pick-up truck or van, unspecified whether traffic or nontraffic accident, initial encounter; I10 Essential (primary) hypertension; E11.9 Type 2 diabetes mellitus without complications; F20.9 Schizophrenia, unspecified; F31.9 Bipolar disorder, unspecified; Y93.9 Activity, unspecified; Y92.9 Unspecified place or not applicable; Y99.9 Unspecified external cause status; Z88.0 Allergy status to penicillin; Z88.8 Allergy status to other drugs, medicaments and biological substances
CPT/HCPCS: 99282

== ENCOUNTER 2018-06-13 18:37 | Emergency (ER) | payer MEDICAID ==
[~2018-06-13] VITALS: Ht 160 cm; Wt 62.6 kg
[~2018-06-13 18:37] MED LIST changes: +LIDOCAINE700 M1 TP; +ROBAXIN500 MG PO
[2018-06-13] MEDS ORDERED: CYMBALTA30 MG ORAL (18:49)
[2018-06-13] MEDS ORDERED: Isovue-300 100ml vial INJ PRN (19:00)
[2018-06-13 19:15] VITALS: BP 152/69
--- NOTE | 2018-06-13 19:29 | Emergency Room Report ---
History of Present Illness General Chief Complaint: Abdominal Pain Source: Patient, Medical Record Present Illness HPI This patient complains of left lower quadrant abdominal pain for the past few days ago. She does have a history of stomach cancer but states that she has been in remission for the past 3 years. She denies recent illness. She denies nausea or vomiting. She has fever or chills. She notes that she has had some urinary frequency and pressure. She denies abnormal vaginal discharge. She denies pelvic pain. She has no other complaints. Allergies: Coded Allergies: KETOROLAC (Verified Allergy, Severe, 07/25/15) PENICILLINS (Verified Allergy, Severe, 07/25/15) IODINE (Verified Allergy, Intermediate, 07/25/15) HALOPERIDOL (Verified Allergy, Unknown, 01/21/18) NAPROXEN (Verified Allergy, Unknown, 02/20/18) RISPERIDONE (Verified Allergy, Unknown, 02/05/18) TRAMADOL (Verified Allergy, Unknown, 08/22/15) Patient History Past Medical History: see triage record, DM, HTN, seizures, other - nerve deafness, eye injury Social History: Reports: smoking, alcohol use, drug use Reviewed Nursing Documentation: PMH: Agreed; PSxH: Agreed Nursing Documentation-PMH Past Medical History: No History, Except For Hx Cardiac Problems: Yes Hx Hypertension: Yes Hx Pacemaker: No Hx COPD: No Hx Diabetes: Yes Hx Cancer: No Hx Gastrointestinal Problems: No Hx Dialysis: No Hx Neurological Problems: No Hx Cerebrovascular Accident: No Hx Seizures: Yes - Last seizure 2012 Review of Systems All Other Systems: negative except mentioned in HPI Physical Exam Vital Signs Date Time Temp Pulse Resp B/P (MAP) Pulse Ox O2 Delivery O2 Flow Rate FiO2 06/13/18 18:46 97.5 68 18 156/70 100 Room Air Sp02 EP Interpretation: reviewed, normal General Appearance: no apparent distress, alert, GCS 15, non-toxic Head: normocephalic, atraumatic ENT: hearing grossly normal, normal pharynx, no angioedema, normal voice Neck: full range of motion, supple/symm/no masses Respiratory: chest non-tender, lungs clear, normal breath sounds, no respiratory distress, no retraction, no accessory muscle use, speaking full sentences Cardiovascular #1: regular rate, rhythm, no edema Gastrointestinal: normal bowel sounds, soft, non-distended, no guarding, tenderness - TTP in the LLQ Rectal: deferred Musculoskeletal: back normal, gait/station normal, normal range of motion, non- tender Neurologic: alert, oriented x3, responsive, motor strength/tone normal, sensory intact, speech normal Psychiatric: judgement/insight normal, memory normal, mood/affect normal, no suicidal/homicidal ideation Skin: normal color, no rash, warm/dry, well hydrated Medical Decision Making Diagnostic Impression: Primary Impression: Chronic pain Additional Impressions: Opioid dependence Constipation ER Course This patient has a known history of opiate dependence and chronic pain. She presents regularly for different pain syndromes. She presented today with left lower quadrant pain and tenderness. I did obtain a CT of the abdomen and pelvis. There is moderate stool but otherwise no acute findings. Specifically no evidence of appendicitis, diverticulitis or any acute intra-abdominal process. I will put the patient on a bowel regimen. I suspect the patient has constipation secondary to opioid use and dependence. I will not be giving the patient any opiates. Patient was educated of this and instructed to follow closely with her primary care physician. Laboratory Tests Test 06/13/18 19:05 Urine Color Pale yellow Urine Appearance Clear Urine pH 6 (4.5-8.0) Urine Specific [place] 1.015 (1.005-1.035) Urine Protein Negative (NEGATIVE) Urine Glucose (UA) Negative (NEGATIVE) Urine Ketones Negative (NEGATIVE) Urine Blood 1+ (NEGATIVE) H Urine Nitrite Negative (NEGATIVE) Urine Bilirubin Negative (NEGATIVE) Urine Urobilinogen Normal MG/DL (0.0-1.0) Urine Leukocyte Esterase Negative (NEGATIVE) Urine RBC 0-2 /HPF (0 - 2) Urine WBC 0-2 /HPF (0 - 2) Urine Squamous Epithelial Cells Occasional /LPF Urine Bacteria Occasional /HPF (NONE) EKG Diagnostic Results Rate: normal Rhythm: NSR ST Segments: no acute changes Rhythm Strip Diag. Results EP Interpretation: yes Rate: 70's Rhythm: NSR, no PVC's, no ectopy CT/MRI/US Diagnostic Results CT/MRI/US Diagnostic Results : Imaging Test Ordered: CT abd/pelvis Impression No acute findings. See official report. No diverticulitis. Last Vital Signs Date Time Temp Pulse Resp B/P (MAP) Pulse Ox O2 Delivery O2 Flow Rate FiO2 06/13/18 19:15 97.3 67 16 152/69 100 Room Air Status: improved Disposition: HOME, SELF-CARE Condition: Improved Kate Vera DO Jun 13, 2018 19:29
[2018-06-13] MEDS ORDERED: Morphine Sulfate 4mg/ml Inj (IV/IM USE ONLY) IVP ONE (19:30)
[2018-06-13 20:31] LABS: APPEARANCE,URINE CLEAR; BILIRUBIN, URINE NEGATIVE (NEGATIVE); COLOR,URINE PALE YELLOW; GLUCOSE, URINE (UA) NEGATIVE (NEGATIVE); KETONES,URINE NEGATIVE (NEGATIVE); LEUKOCYTE ESTERASE ,URINE NEGATIVE (NEGATIVE); NITRITE,URINE NEGATIVE (NEGATIVE); PH,URINE 6 (4.5-8.0); PROTEIN,URINE NEGATIVE (NEGATIVE); UROBILINOGEN,URINE NORMAL MG/DL (0.0-1.0)
[2018-06-13 20:40] VITALS: BP 144/74
[2018-06-13] MEDS ORDERED: COLACE100 MG ORAL (21:17)
[2018-06-13] MEDS ORDERED: MIRALAX17 G2 ORAL (21:17)
[2018-06-13 21:25] VITALS: BP 136/88
--- NOTE | 2018-06-14 08:58 | Diagnostic Imaging Report ---
Indication: Abdominal pain Technique: Continuous helical transaxial imaging of the abdomen and pelvis was obtained from the lung bases to the pubic symphysis. No intravenous contrast was administered. Coronal 2-D reformats were also obtained. Automatic Exposure Control was utilized. Total Dose length Product (DLP): 663.[address] Dose Index Volume (CTDIvol): 13.01 mGy Comparison: none Findings: There is a hiatal hernia present. Cholecystectomy clips noted. Lung bases are clear. Some breathing motion is present. There is no nephrolithiasis. Aorta and iliac arteries show some mural calcification. Mild to moderate stool retention noted. Diverticula demonstrated within the colon. No evidence of acute diverticulitis. There is evidence of a right decubitus ulcer, partially visualized on this examination. The adjacent the right ischium is grossly unremarkable by this examination. There is no obvious abscess with limitations given the nonadministration of IV contrast material. There is no evidence of bowel obstruction, free fluid or free air. IMPRESSION: Right sacral decubitus ulcer posterior to the right ischium. No obvious abscess. No acute intra-abdominal/pelvic findings. Multiple incidental findings as discussed above. The CT scanner at [facility] is accredited by the [employer] and the scans are performed using dose optimization techniques as appropriate to a performed exam including Automatic Exposure control.
== END 2018-06-13 21:45 | disposition home or self-care (01) ==
LOC: EMR 19:23
DX: R10.32 Left lower quadrant pain (principal); G89.29 Other chronic pain; F11.20 Opioid dependence, uncomplicated; K59.00 Constipation, unspecified; I10 Essential (primary) hypertension; E11.9 Type 2 diabetes mellitus without complications; Z88.0 Allergy status to penicillin; Z88.6 Allergy status to analgesic agent; Z88.8 Allergy status to other drugs, medicaments and biological substances
CPT/HCPCS: 74176; 81003; 96374; 99284; J2270

== ENCOUNTER 2018-06-19 15:58 | Emergency (ER) | payer MEDICAID ==
[~2018-06-19] VITALS: Ht 160 cm; Wt 63.5 kg
[~2018-06-19 15:58] MED LIST changes: +COLACE100 MG ORAL; +CYMBALTA30 MG ORAL; +MIRALAX17 G2 ORAL
[2018-06-19 16:10] VITALS: BP 165/81
[2018-06-19] MEDS ORDERED: NKM (16:12)
[2018-06-19] MEDS ORDERED: TYLENOL EXTRA500 MG ORAL (16:39)
[2018-06-19] MEDS ORDERED: ROBAXIN500 MG PO (16:39)
[2018-06-19] MEDS ORDERED: LIDOCAINE700 M1 TP (16:39)
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
[2018-06-19] MEDS ORDERED: Norco 5mg/325mg tab ORAL ONE (16:45)
[2018-06-19] MEDS ORDERED: Methocarbamol 500mg tab ORAL ONE (16:45)
[2018-06-19 16:48] VITALS: BP 145/75
== END 2018-06-19 16:48 | disposition home or self-care (01) ==
LOC: EMR 16:30
DX: G89.29 Other chronic pain (principal); I10 Essential (primary) hypertension; E11.9 Type 2 diabetes mellitus without complications; Z88.0 Allergy status to penicillin; Z88.8 Allergy status to other drugs, medicaments and biological substances
CPT/HCPCS: 99283

== ENCOUNTER 2018-09-08 15:12 | Emergency (ER) | payer MEDICAID ==
[~2018-09-08] VITALS: Ht 167.6 cm; Wt 72.6 kg
[~2018-09-08 15:12] MED LIST changes: +DICYCLOMINE HCL10 MG PO; +NKM; +ONDANSETRON ODT4 MG BC; +RANITIDINE HCL150 MG ORAL
[2018-09-08 15:15] VITALS: BP 146/76
--- NOTE | 2018-09-08 15:25 | Emergency Room Report ---
History of Present Illness General Chief Complaint: Vomiting Source: Medical Record (AUDELIA DUTTA P.AJa) Present Illness HPI Patient is a 57-year-old female brought in by ambulance for leg pain. She was found in the street without any clothes on. She has been seen in this emergency Department for the same complaint many times. Upon further questioning, she states that she is here because she is cold. Pain to the legs is described as a 10 out of 10 dull ache to both legs. Constant. She denies any injury. She denies other symptoms including N, V, F, numbness, incontinence , SOB, CP (AUDELIA DUTTA P.A.) Allergies: Coded Allergies: KETOROLAC (Verified Allergy, Severe, 07/25/15) PENICILLINS (Verified Allergy, Severe, 07/25/15) IODINE (Verified Allergy, Intermediate, 07/25/15) CARBAMAZEPINE (Unverified Allergy, Unknown, 08/18/18) HALOPERIDOL (Verified Allergy, Unknown, 01/21/18) NAPROXEN (Verified Allergy, Unknown, 02/20/18) RISPERIDONE (Verified Allergy, Unknown, 02/05/18) TRAMADOL (Verified Allergy, Unknown, 08/22/15) Patient History Past Medical History: see triage record Pertinent Family History: none Reviewed Nursing Documentation: PMH: Agreed; PSxH: Agreed (AUDELIA DUTTA) Nursing Documentation-PMH Past Medical History: No History, Except For Hx Cardiac Problems: Yes Hx Hypertension: Yes Hx Pacemaker: No Hx Asthma: Yes Hx COPD: No Hx Diabetes: Yes Hx Cancer: Yes Hx Gastrointestinal Problems: No Hx Dialysis: No Hx Neurological Problems: No Hx Cerebrovascular Accident: No Hx Seizures: Yes (AUDELIA DUTTA P.A.) Review of Systems All Other Systems: negative except mentioned in HPI (AUDELIA DUTTA P.A.) Physical Exam Vital Signs Date Time Temp Pulse Resp B/P (MAP) Pulse Ox O2 Delivery O2 Flow Rate FiO2 09/08/18 15:12 98.1 80 18 146/100 100 Room Air Sp02 EP Interpretation: reviewed, normal General Appearance: alert, GCS 15, non-toxic Head: normocephalic, atraumatic Respiratory: chest non-tender, lungs clear, normal breath sounds, speaking full sentences Cardiovascular #1: regular rate, rhythm, no edema Gastrointestinal: normal bowel sounds, non tender, soft, non-distended, no guarding, no rebound Musculoskeletal: back normal, gait/station normal, normal range of motion Neurologic: alert, responsive, sensory intact Skin: normal color, no rash, warm/dry, well hydrated (AUDELIA DUTTA P.A.) Medical Decision Making PA Attestation Dr. Matt is my supervising physician. Patient management was discussed with my supervising physician (AUDELIA DUTTA) Homeless Attestation I, The treating physician Dr. Matt, has assessed and agrees that patient is medically stable for discharge to an outpatient disposition. (Bolivar Matt MD) Diagnostic Impression: Primary Impression: Chronic pain Qualified Codes: G89.29 - Other chronic pain ER Course Patient is a 57-year-old female brought in by ambulance for leg pain. DDx considered but not limited to: chronic pain, narcotic medication seeking behavior, contusion, fracture Upon evaluation, pt states she is here because she is cold. blankets provided and pt is resting. She also feels a burning in chest and begins to vomit clear/ yellow fluid. She has gastritis. PE: vitals stable. Afebrile. NAD RRR. Lungs CTA bilat Abd soft and non tender. Legs: no deformity. Full AROM. The patient is given Zofran, Reglan, Pepcid, and fluids. She is resting comfortably. Upon discharge, she becomes combative and states that she is having pain. She is given morphine and pain has improved. She is provided clothes. She was told that she needs to follow-up with primary doctor and pain management for further evaluation and treatment. ER precautions are given (AUDELIA DUTTA P.A.) Last Vital Signs Date Time Temp Pulse Resp B/P (MAP) Pulse Ox O2 Delivery O2 Flow Rate FiO2 09/08/18 15:12 98.1 80 18 146/100 100 Room Air Status: improved (AUDELIA DUTTA P.A.) Disposition: HOME, SELF-CARE Condition: Improved Scripts Acetaminophen* (TYLENOL EXTRA STRENGTH*) 500 Mg Tablet 500 MG ORAL Q8H PRN for Prn Headache/Temp > 101, #30 TAB 0 Refills Prov: AUDELIA DUTTA P.A. 09/08/18 AUDELIA DUTTA Sep 08, 2018 15:25 Bolivar Matt MD Sep 08, 2018 21:15
[2018-09-08] MEDS ORDERED: Methocarbamol 750mg tab ORAL ONE (15:30)
[2018-09-08] MEDS ORDERED: Metoclopramide 10mg/2ml Inj IVP ONE (16:45)
[2018-09-08 17:00] VITALS: BP 135/76
[2018-09-08] MEDS ORDERED: Morphine Sulfate 4mg/ml Inj (IV/IM USE ONLY) IVP ONE (18:15)
[2018-09-08] MEDS ORDERED: TYLENOL EXTRA500 MG ORAL (18:24)
[2018-09-08] MEDS ORDERED: Morphine Sulfate 2mg/ml Inj IVP ONE (18:45)
[2018-09-08 19:35] VITALS: BP 147/68
== END 2018-09-08 19:52 | disposition home or self-care (01) ==
LOC: EDUNIT# 15:12 → EDBD 15:12 → EMR 15:26
DX: G89.29 Other chronic pain (principal); R11.10 Vomiting, unspecified; Z59.0 Homelessness; Z88.0 Allergy status to penicillin; Z88.8 Allergy status to other drugs, medicaments and biological substances; M79.605 Pain in left leg; M79.604 Pain in right leg; I10 Essential (primary) hypertension; E11.9 Type 2 diabetes mellitus without complications; Z85.9 Personal history of malignant neoplasm, unspecified
CPT/HCPCS: 96361; 96374; 96375; 99284; J2270; J2405; J2765; S0028

== ENCOUNTER 2018-10-19 18:09 | Emergency (ER) | payer MEDICAID ==
[~2018-10-19] VITALS: Ht 162.6 cm; Wt 67.1 kg
[2018-10-19] MEDS ORDERED: IBUPROFEN600 MG ORAL (18:20)
--- NOTE | 2018-10-19 18:20 | NUR ---
ED Nurse Note: PT WALKED IN TO ER TODAY FROM HOME. AOX4. PT C/O RIGHT SIDED BREAST PAIN, 05/16 X 1 WEEK AGO. PT DENIES ANY TRAUMA OR INJURY. PT DENIES ANY PALPABLE MASSES OR LUMPS. PT DENIES ANY DISCHARGE FROM [facility].
[2018-10-19 18:56] VITALS: BP 138/76
--- NOTE | 2018-10-19 19:10 | NUR ---
ED Nurse Note: REPORT GIVEN TO SOPHIE ARELLANO.
[2018-10-19] MEDS ORDERED: HYDROcodone/Acetamin 5/325 tab ORAL ONE (19:15)
[2018-10-19] MEDS ORDERED: TYLENOL EXTRA500 MG ORAL (19:15)
--- NOTE | 2018-10-19 19:15 | Emergency Room Report ---
History of Present Illness General Chief Complaint: General Complaint Source: Patient Present Illness HPI 58-year-old female patient presents the ER complaining of bilateral breast pain for times 1 week. Reports pain is worse than right breast. Denies skin changes , denies erythema or edema. Denies recent injury or trauma. Denies chest pain or shortness of breath. Denies fever vomiting. Denies palpable masses. Reports last mammogram was a year ago. Denies history of breast problems. Denies nipple discharge. Denies other aggravating or relieving factors. Reports has appointment with pain management on Monday of next week. Denies taking any hormone medications. Allergies: Coded Allergies: KETOROLAC (Verified Allergy, Severe, 07/25/15) PENICILLINS (Verified Allergy, Severe, 07/25/15) IODINE (Verified Allergy, Intermediate, 07/25/15) CARBAMAZEPINE (Unverified Allergy, Unknown, 08/18/18) HALOPERIDOL (Verified Allergy, Unknown, 01/21/18) NAPROXEN (Verified Allergy, Unknown, 02/20/18) RISPERIDONE (Verified Allergy, Unknown, 02/05/18) TRAMADOL (Verified Allergy, Unknown, 08/22/15) Patient History Past Medical History: see triage record Reviewed Nursing Documentation: PMH: Agreed; PSxH: Agreed Nursing Documentation-PMH Past Medical History: No History, Except For Hx Cardiac Problems: No Hx Hypertension: No Hx Pacemaker: No Hx Asthma: No Hx COPD: No Hx Diabetes: Yes Hx Cancer: Yes Hx Gastrointestinal Problems: No Hx Dialysis: No History Of Psychiatric Problem: No - anxiety Hx Neurological Problems: No Hx Cerebrovascular Accident: No Hx Seizures: No Review of Systems All Other Systems: negative except mentioned in HPI Physical Exam Vital Signs Date Time Temp Pulse Resp B/P (MAP) Pulse Ox O2 Delivery O2 Flow Rate FiO2 10/19/18 18:16 98.4 71 14 145/71 98 Room Air Sp02 EP Interpretation: reviewed, normal General Appearance: well appearing, no apparent distress, alert, GCS 15, non- toxic Head: normocephalic, atraumatic Eyes: bilateral eye normal inspection, bilateral eye PERRL ENT: hearing grossly normal, normal pharynx, no angioedema, normal voice, uvula midline, moist mucus membranes Neck: full range of motion, no bony tend Respiratory: lungs clear, normal breath sounds, no rhonchi, no respiratory distress, no accessory muscle use, no wheezing, speaking full sentences Cardiovascular #1: regular rate, rhythm, no edema Musculoskeletal: back normal, digits/nails normal, gait/station normal, normal range of motion, non-tender Neurologic: alert, oriented x3, responsive, motor strength/tone normal, sensory intact Skin: no rash, other - No erythema, no edema, no nipple discharge, no skin dimpling, no palpable mass, no axillary lymphadenopathy Medical Decision Making PA Attestation Dr. Jiang is my supervising Physician whom patient management has been discussed with. Diagnostic Impression: Primary Impression: Breast pain ER Course Pt. presents to the ED c/o bilateral breast pain, worse in the right breast. Ddx considered but are not limited to mastitis, cellulitis, abscess, lymphadenopathy, lipoma, malignancy. Denies chest pain or shortness of breath, does not require cardiac workup for chest x-ray at this time. Vital signs: are WNL, pt. is afebrile ER COURSE: Physical exam benign, performed with female instructional resource teacher present. No erythema or edema, no palpable masses. Advised patient follow-up with primary care provider discussed referral to mammogram. Patient with [facility] in the ER for pain, will discharge patient with Tylenol. Informed patient that would no longer refill or provide opioid pain medications here, previously seen here multiple times for chronic pain. Previously tolerated [place]'s without difficulty. ER precautions given. Provided patient with her CURES report. DISCHARGE: At this time pt is stable for d/c to home. Patient is resting comfortably, in no acute distress, nontoxic appearing, talking without difficulty. Patient to take medications as instructed Will provide with patient care instructions and any necessary prescriptions. Care plan and follow-up instructions provided. Patient instructed to follow-up with primary care provider in 3 - 5 days. Patient questions asked and answered. Patient reports understanding and agreement to treatment plan. ER precautions given. Patient instructed to return to ER immediately for any new or worsening of symptoms including but not limited to increasing SOB, persistent fever, chest pain, intractable vomiting. - Please note that this Emergency Department Report was dictated using [employer]commercial airplane pilot technology software, occasionally this can lead to erroneous entry secondary to interpretation by the dictation equipment. Last Vital Signs Date Time Temp Pulse Resp B/P (MAP) Pulse Ox O2 Delivery O2 Flow Rate FiO2 10/19/18 18:56 98.2 74 16 138/76 100 Room Air Status: improved Disposition: HOME, SELF-CARE Condition: Stable Scripts Acetaminophen* (TYLENOL EXTRA STRENGTH*) 500 Mg Tablet 500 MG ORAL Q8H PRN for Prn Headache/Temp > 101, #30 TAB 0 Refills Prov: Ovidio Stephen 10/19/18 Patient Instructions: Breast Tenderness Additional Instructions: Followup with primary care provider in 2-3 days. Discuss referral for mammogram. Take medications as directed. Patient questions asked and answered. ER precautions given, patient instructed to return to ER immediately for any new or worsening of symptoms. Ovidio Stephen Oct 19, 2018 19:15
[2018-10-19 19:21] VITALS: BP 132/82
--- NOTE | 2018-10-19 19:22 | NUR ---
ED Nurse Note: PT SITTING PEACEFULLY IN BED IN NAD. AOX4. PRESCRIPTIONS AND DISCHARGE PAPERWORK EXPLAINED TO PT. PT VERBALIZES UNDERSTANDING AND ALL QUESTIONS ANSWERED. PRESCRIPTIONS AND DISCHARGE PAPERWORK GIVEN TO PT AND ID WRISTBAND REMOVED. PT WALKED OUT OF ER WITH STEADY GAIT AND ALL BELONGINGS.
== END 2018-10-19 20:00 | disposition home or self-care (01) ==
LOC: EMR 19:55
DX: N64.4 Mastodynia (principal); E11.9 Type 2 diabetes mellitus without complications; Z88.0 Allergy status to penicillin; Z88.5 Allergy status to narcotic agent; Z88.8 Allergy status to other drugs, medicaments and biological substances
CPT/HCPCS: 99282

== ENCOUNTER 2018-12-05 00:37 | Emergency (ER) | payer OTHER, MEDICAID ==
[~2018-12-05] VITALS: Ht 162.6 cm; Wt 68.0 kg
[~2018-12-05 00:37] MED LIST changes: +IBUPROFEN600 MG ORAL
[2018-12-05 00:46] VITALS: BP 121/62
--- NOTE | 2018-12-05 00:46 | NUR ---
ED Nurse Note: Pt was brought in by [employer] for medical clearance. Pt was c/o HTN, Bp is 120/60. Pt is A/O X 4. Vital signs stable at this time. waiting fro orders.
--- NOTE | 2018-12-05 01:01 | Emergency Room Report ---
History of Present Illness General Chief Complaint: Medical Clearance Source: Patient Present Illness HPI This is a 58-year-old female with history of chronic pain. She was brought in by police for medical clearance. She was arrested and said that she has a history of high blood pressure. They brought her here to be evaluated. Patient complaining of chronic pain. She's been here multiple times for pain complaints. He complaining of back pain is 10 out of 10. No nausea no vomiting. No fever chills. No chest pain. Denies any other complaint. Allergies: Coded Allergies: KETOROLAC (Verified Allergy, Severe, 07/25/15) PENICILLINS (Verified Allergy, Severe, 07/25/15) IODINE (Verified Allergy, Intermediate, 07/25/15) CARBAMAZEPINE (Unverified Allergy, Unknown, 08/18/18) HALOPERIDOL (Verified Allergy, Unknown, 01/21/18) NAPROXEN (Verified Allergy, Unknown, 02/20/18) RISPERIDONE (Verified Allergy, Unknown, 02/05/18) TRAMADOL (Verified Allergy, Unknown, 08/22/15) Patient History Past Medical History: see triage record, old chart reviewed, psych hx Past Surgical History: none Pertinent Family History: none Social History: Reports: smoking Now: No Immunizations: other Reviewed Nursing Documentation: PMH: Agreed; PSxH: Agreed Nursing Documentation-PMH Past Medical History: No History, Except For Hx Cardiac Problems: No Hx Hypertension: Yes Hx Pacemaker: No Hx Asthma: No Hx COPD: No Hx Diabetes: Yes Hx Cancer: Yes Hx Gastrointestinal Problems: No Hx Dialysis: No Hx Neurological Problems: No Hx Cerebrovascular Accident: No Hx Seizures: No Review of Systems Eye: Denies: eye pain, blurred vision ENT: Denies: ear pain, nose congestion, throat swelling Respiratory: Denies: cough, shortness of breath Cardiovascular: Denies: chest pain, palpitations Gastrointestinal: Denies: abdominal pain, diarrhea, nausea, vomiting Musculoskeletal: Reports: back pain; Denies: joint pain Skin: Denies: rash Neurological: Denies: headache, numbness Endocrine: Denies: increased thirst, increased urine Hematologic/Lymphatic: Denies: easy bruising All Other Systems: negative except mentioned in HPI Physical Exam Vital Signs Date Time Temp Pulse Resp B/P (MAP) Pulse Ox O2 Delivery O2 Flow Rate FiO2 12/05/18 00:39 98.6 60 12 120/60 100 vitals normal Sp02 EP Interpretation: reviewed, normal General Appearance: well appearing, no apparent distress, alert Head: normocephalic, atraumatic Eyes: bilateral eye PERRL, bilateral eye EOMI ENT: hearing grossly normal, normal pharynx Neck: full range of motion, supple, no meningismus Respiratory: chest non-tender, lungs clear, normal breath sounds Cardiovascular #1: regular rate, rhythm, no murmur Gastrointestinal: normal bowel sounds, non tender, no mass, no organomegaly, no bruit, non-distended Musculoskeletal: back normal, gait/station normal, normal range of motion Psychiatric: mood/affect normal Skin: warm/dry Medical Decision Making Diagnostic Impression: Primary Impression: Chronic pain Qualified Codes: G89.4 - Chronic pain syndrome Additional Impression: Examination, medicolegal reason ER Course Patient here for medical clearance. Her blood pressures normal. We'll discharge to precinct police lieutenant. Last Vital Signs Date Time Temp Pulse Resp B/P (MAP) Pulse Ox O2 Delivery O2 Flow Rate FiO2 12/05/18 00:39 98.6 60 12 120/60 100 Status: unchanged Disposition: D/C TO [facility] IN [facility] Condition: Stable Additional Instructions: Follow-up with your doctor in 7 days. Return if symptom worsen. Fernie Diaz MD December 05, 2018 01:01
[2018-12-05 01:05] VITALS: BP 121/62
--- NOTE | 2018-12-05 01:05 | NUR ---
ER DISCHARGE NOTE: Patient is cleared to be discharged per Dr. Diaz. Pt is aox4 on room air with stable vital signs. Pt and [employer] were given dc and prescription instructions and were able to verbalize understanding. Pt's ID band removed. pt is D/C by wheel chair. Accompanied by [employer].
== END 2018-12-05 01:05 ==
LOC: EMR 01:00
DX: G89.4 Chronic pain syndrome (principal); Z02.89 Encounter for other administrative examinations; I10 Essential (primary) hypertension; E11.9 Type 2 diabetes mellitus without complications
CPT/HCPCS: 99282

== ENCOUNTER 2019-05-17 15:48 | Emergency (ER) | payer MEDICAID, OTHER ==
[~2019-05-17] VITALS: Ht 162.6 cm; Wt 71.7 kg
[2019-05-17 16:00] VITALS: BP 121/68
--- NOTE | 2019-05-17 16:31 | NUR ---
ED Nurse Note: first contact with pt. a/ox4. pt reports of having discomfort when breathing in and out x1 month. Breathing normal/even/unlabored. Skin warm/dry/intact. NAD noted.
[2019-05-17] MEDS ORDERED: HYDROcodone/Acetamin 7.5/325 tab ORAL ONE (16:45)
--- NOTE | 2019-05-17 16:48 | Emergency Room Report ---
History of Present Illness General Chief Complaint: Upper Respiratory Illness Source: Medical Record Present Illness HPI 58 YO Female presents to the ED c/o 02/13 in severity pain, coughing and SOB off and on x 1 month. Pt. reports recent hospitalization and intubation for enlarged heart and renal issues. Pt. reports she has been "choking" in the middle of the night and waking up coughing. She denies LE swelling. hx of DVT requiring surgical removal. Denies CP, palpitations or DAY. Pt. denies AMS, dizziness, weakness or fatigue. Pt. is not on any cardiac medications or diuretics. Pt. states she has been taking Centrum Silver Multi Vitamin regularly . Denies dysuria, anuria, urinary frequency or urgency. Detailed PMHx. is limited due to poor pt. knowledge. Allergies: Coded Allergies: KETOROLAC (Verified Allergy, Severe, 07/25/15) PENICILLINS (Verified Allergy, Severe, 07/25/15) IODINE (Verified Allergy, Intermediate, 07/25/15) CARBAMAZEPINE (Unverified Allergy, Unknown, 08/18/18) HALOPERIDOL (Verified Allergy, Unknown, 01/21/18) NAPROXEN (Verified Allergy, Unknown, 02/20/18) RISPERIDONE (Verified Allergy, Unknown, 02/05/18) TRAMADOL (Verified Allergy, Unknown, 08/22/15) Patient History Past Medical History: see triage record, other - CAMI/renal failure w. hx of intubation ( recent) , cardiomegaly. Past Surgical History: none Pertinent Family History: none Now: No Reviewed Nursing Documentation: PMH: Agreed; PSxH: Agreed Nursing Documentation-PMH Past Medical History: No History, Except For Hx Cardiac Problems: No Hx Hypertension: Yes Hx Pacemaker: No Hx Asthma: No Hx COPD: No Hx Diabetes: Yes Hx Cancer: Yes Hx Gastrointestinal Problems: No Hx Dialysis: No Hx Neurological Problems: No Hx Cerebrovascular Accident: No Hx Seizures: No Review of Systems All Other Systems: negative except mentioned in HPI Physical Exam Vital Signs Date Time Temp Pulse Resp B/P (MAP) Pulse Ox O2 Delivery O2 Flow Rate FiO2 05/17/19 15:50 98.1 72 16 121/68 (85) 98 Room Air Sp02 EP Interpretation: reviewed, normal General Appearance: no apparent distress, alert, GCS 15, non-toxic Head: normocephalic, atraumatic Eyes: bilateral eye normal inspection, bilateral eye PERRL ENT: hearing grossly normal, normal voice Neck: full range of motion Respiratory: chest non-tender, no respiratory distress, no retraction, no accessory muscle use, speaking full sentences, wheezing - expiratory bilaterally Cardiovascular #1: regular rate, rhythm, no edema, normal capillary refill Musculoskeletal: gait/station normal, normal range of motion, tender - Right lumbar paraspinal musculature bilaterally. Neurologic: alert, oriented x3, responsive, motor strength/tone normal, sensory intact, speech normal, grossly normal Psychiatric: judgement/insight normal Medical Decision Making PA Attestation Dr. Rich is my supervising Physician whom patient management has been discussed with. Diagnostic Impression: Primary Impression: At high risk for hyperkalemia Additional Impressions: Abnormal electrocardiogram [ECG] [EKG] SOB (shortness of breath) Hx of renal failure syndrome History of cardiomegaly ER Course 58 YO Female presents to the ED c/o 02/13 in severity pain, coughing and SOB off and on x 1 month. Pt. reports recent hospitalization and intubation for enlarged heart and renal issues. Pt. reports she has been "choking" in the middle of the night and waking up coughing. She denies LE swelling. hx of DVT requiring surgical removal. Denies CP, palpitations or DAY. Pt. denies AMS, dizziness, weakness or fatigue. Ddx considered but are not limited to URI, pneumonia, PE, strep pharyngitis, meningitis. Vital signs: Pt. is afebrile, the remaining VS are WNL H&PE are most consistent with URI- no meningeal signs, oropharynx is not involved, no evidence of bacterial infection at this time. ORDERS: - CBC, CMP, Troponin, CK, CK-MB, --Pending blood draw, pt. difficult stick , declines EJ. -CXR: unremarkable no CHF or PNA noted - EKG: Peaked T-waves and diffuse ST elevation. ED INTERVENTIONS: - [place] PO -Albuterol HHN x 3 -- wheezes have improved. DISPOSITION: Pt. Requests AMA. - At this time the patient is requesting to leave AGAINST MEDICAL ADVICE. I believe that this patient has the capacity to make decisions on He/She own. I discussed with the patient the risks of leaving AMA. Some of these risks include delay in diagnosis and treatment, as well as worsening of symptoms, organ damage, and permanent disability or even . After discussing these risks with the patient. He/She continues to express His/ Her want to leave AGAINST MEDICAL ADVICE. I encouraged the patient to return at any time, and that she will be welcome here in the emergency department to continue medical management. Pt. is provided with copy of her EKG to take with her for follow up . pt. reports she will got [facility] where they have all her records and usually are able to draw blood easier on her in addition to picc line placements. EKG Diagnostic Results EP Interpretation: Dr. Rich Rate: bradycardiac - 56 BPM Rhythm: NSR ST Segments: other - ST elevation noted in leads I, 2, 3 aVF, V4, V5 and V6. Some T wave inversion and depression is also noted. Other Impression EKG highly suspicious for Hyperkalemia given peaked T-waves. ASA given to the pt in ED: No Chest X-Ray Diagnostic Results Chest X-Ray Diagnostic Results : Chest X-Ray Ordered: Yes # of Views/Limited/Complete: 1 View Indication: Shortness of Breath EP Interpretation: Yes DAVID Xray: Interpretation reviewed, by supervising MD, and agrees with findings. Interpretation: no consolidation, no effusion, no pneumothorax, no acute cardiopulmonary disease Impression: No acute disease Electronically Signed by: Caty Mehta PA-C Last Vital Signs Date Time Temp Pulse Resp B/P (MAP) Pulse Ox O2 Delivery O2 Flow Rate FiO2 05/17/19 16:00 98.1 72 16 121/68 98 Room Air Disposition: AGAINST MEDICAL ADVICE Condition: Unknown Patient Instructions: Hyperkalemia, [id number]-[id number], Potassium Content of Foods, Shortness of Breath, [id number] Additional Instructions: Very imperative that you have laboratory testing for high concern for hyperkalemia or ischemic heart, you had an abnormal EKG reading and a complicated history requiring emergent evaluation. You are leaving AMA, before results of your diagnostic lab work are available. This can cause delayed diagnosis as well as treatment, and ultimately leading up to worsening of symptoms, damage to organs, permanent disability or even . You are encouraged to return to the ER at any time if you want to continue your evaluation Caty Mehta May 17, 2019 16:48
[2019-05-17] MEDS: Albuterol ud Inhalation HHN SCH ×2 (17:03→17:08)
--- NOTE | 2019-05-17 18:37 | NUR ---
ED Nurse Note: TWO RNS ATTEMPTED IV INSERTION. UNABLE TO OBTAIN LABS. PER DAVID MONTOYA, WILL ASK IONA NOE TO ATTEMPT. PT REFUSED TO GET POKE MULTIPLE TIMES. Addendum: 05/17/19 at 1843 by [email or web address] ED Nurse Note: TWO RNS ATTEMPTED IV INSERTION. UNABLE TO OBTAIN LABS. PER DAVID MONTOYA, WILL ASK IONA NOE TO ATTEMPT. PT REFUSED TO GET IV INSERTION AT THIS TIME.
--- NOTE | 2019-05-17 18:42 | NUR ---
ED Nurse Note: PT REFUSED TO BE DRAWN AT THIS TIME. RN CONTACTED HEEL PAINTER TO COME TO DRAW. NAD NOTED. PT RECEIVING BREATHING TREAMENT AT THIS TIME.
--- NOTE | 2019-05-17 18:49 | Diagnostic Imaging Report ---
EXAM: XR Chest, 1 View CLINICAL HISTORY: PAIN TECHNIQUE: Frontal view of the chest. COMPARISON: No relevant prior studies available. FINDINGS: Lungs: No consolidation. Pleural space: Unremarkable. No pneumothorax. Heart: Unremarkable. No cardiomegaly. Mediastinum: Unremarkable. Bones joints: No acute fracture. IMPRESSION: No acute cardiopulmonary disease.
--- NOTE | 2019-05-17 19:10 | NUR ---
HAND-OFF: Report given to SOPHIE JONES. NAD NOTED.
[2019-05-17 19:30] VITALS: BP 126/68
--- NOTE | 2019-05-17 19:32 | NUR ---
ED Nurse Note: Varnell and drink provided lab contacted for lab draw
--- NOTE | 2019-05-17 19:36 | NUR ---
ED Nurse Note: Lab present
--- NOTE | 2019-05-17 20:00 | NUR ---
ED Nurse Note: Update from lab patient services clerk that she was unable to obtain labs and sample not obtained. Failed venepuncture. Patient counselled. Advised that we could try to obtain the sample from a butterfly needle and that IV access could then be placed if required as PA requesting IV access at this time. Patient stating she does not wish to wait at this time and would like to go home. PA updated. Patient agreed to wait to talk with PA. Patient ambulatory to bathroom and uncomplaining of pain. Patient able to speak in full sentences. No audible wheezes or SOB. Patient continues to be nursed in treatment room 2.
--- NOTE | 2019-05-17 20:22 | NUR ---
ED Nurse Note: Patient left AMA
--- NOTE | 2019-05-17 20:25 | NUR ---
AMA: SEE AMA FORM. Patient signed AMA form and left dept to follow up with PCP.
--- NOTE | 2019-05-18 17:12 | Cardiology Report ---
APPROVED REPORT EKG Measurement Heart [id number] elevation, consider early repolarization, pericarditis, or injury Abnormal ECG
== END 2019-05-17 20:25 | disposition left against medical advice (07) ==
LOC: EMR 16:50
DX: R06.02 Shortness of breath (principal); R94.31 Abnormal electrocardiogram [ECG] [EKG]; I10 Essential (primary) hypertension; E11.9 Type 2 diabetes mellitus without complications; Z85.9 Personal history of malignant neoplasm, unspecified; Z88.6 Allergy status to analgesic agent; Z88.0 Allergy status to penicillin; Z91.041 Radiographic dye allergy status; Z88.8 Allergy status to other drugs, medicaments and biological substances; Z86.718 Personal history of other venous thrombosis and embolism; Z87.448 Personal history of other diseases of urinary system
CPT/HCPCS: 71045; 93005; 94640; 94664; Z7502; 99284

== ENCOUNTER 2019-06-23 19:22 | Emergency (ER) | payer MEDICAID, OTHER ==
[~2019-06-23] VITALS: Ht 162.6 cm; Wt 71.2 kg
--- NOTE | 2019-06-23 19:32 | NUR ---
ED Nurse Note: pt ambulated to ed c/o RIGHT neck, shoulder, and flank pain s/p falling down stairs yesterday. pt denies ko or head injury. skin intact, no visible abnormalities
[2019-06-23 19:33] VITALS: BP 158/68
[2019-06-23] MEDS ORDERED: Tylenol #3 tab (300mg/30mg) ORAL ONE (20:00)
--- NOTE | 2019-06-23 20:12 | NUR ---
ED Nurse Note: pt taken to XRAY
--- NOTE | 2019-06-23 20:25 | NUR ---
ED Nurse Note: pt returned from xray
--- NOTE | 2019-06-23 20:30 | Emergency Room Report ---
History of Present Illness General Chief Complaint: Multiple Trauma/Fall Source: Patient Present Illness HPI 58-year-old female with history of insulin dependent diabetes, CAMI, and chronic pain currently under the care of pain management and taking hydrocodone here complaining of a recent fall that occurred last night. Patient reports that she landed on her right shoulder and rolled and hit the right lower back. Denies any head injury, dizziness, loss of consciousness. Rating the pain 10 out of 10 without radiation however when reaching in her purse to find the name of the medication that she is currently taking patient appears to be in no distress and moves around comfortably. Patient reports that she is specifically allergic to ibuprofen, Tylenol, Toradol, tramadol, and many more anti-inflammatory medication. Patient appears to have a drug-seeking behavior.CURES list was extensive and patient is under the care of pain management and had an active prescription for hydrocodone which reports that she lost the medication. Patient is speaking with slurred speech however that is her baseline as she reports that is been going on for several years. Patient has an upcoming appointment with primary care physician tomorrow. Denies chest pain, shortness of breath, palpitation, no other associated symptoms. Vitals are within normal limits Allergies: Coded Allergies: KETOROLAC (Verified Allergy, Severe, 07/25/15) PENICILLINS (Verified Allergy, Severe, 07/25/15) IODINE (Verified Allergy, Intermediate, 07/25/15) ACETAMINOPHEN (Verified Allergy, Unknown, 06/23/19) CARBAMAZEPINE (Unverified Allergy, Unknown, 08/18/18) HALOPERIDOL (Verified Allergy, Unknown, 01/21/18) NAPROXEN (Verified Allergy, Unknown, 02/20/18) RISPERIDONE (Verified Allergy, Unknown, 02/05/18) TRAMADOL (Verified Allergy, Unknown, 08/22/15) Patient History Past Medical History: see triage record Past Surgical History: unable to obtain Pertinent Family History: none Now: No Immunizations: UTD Reviewed Nursing Documentation: PMH: Agreed; PSxH: Agreed Nursing Documentation-PMH Hx Cardiac Problems: No Hx Hypertension: Yes Hx Pacemaker: No Hx Asthma: No Hx COPD: No Hx Diabetes: Yes Hx Cancer: Yes Hx Gastrointestinal Problems: No Hx Dialysis: No Hx Neurological Problems: No Hx Cerebrovascular Accident: No Hx Seizures: No Review of Systems All Other Systems: negative except mentioned in HPI Physical Exam Vital Signs Date Time Temp Pulse Resp B/P (MAP) Pulse Ox O2 Delivery O2 Flow Rate FiO2 06/23/19 19:26 97.7 86 19 158/68 (98) 99 Room Air Sp02 EP Interpretation: reviewed, normal General Appearance: no apparent distress, alert, GCS 15, non-toxic Head: normocephalic, atraumatic Eyes: bilateral eye normal inspection, bilateral eye PERRL ENT: hearing grossly normal, normal pharynx, no angioedema, normal voice Neck: full range of motion, supple/symm/no masses Respiratory: chest non-tender, lungs clear, normal breath sounds, no rhonchi, no wheezing, speaking full sentences Cardiovascular #1: normal inspection, normal peripheral pulses, regular rate, rhythm, no edema, no murmur Cardiovascular #2: 2+ radial (R), 2+ radial (L) Gastrointestinal: normal bowel sounds, non tender, soft, non-distended, no guarding, no rebound Rectal: deferred Genitourinary: no CVA tenderness Musculoskeletal: back normal, digits/nails normal, gait/station normal, normal range of motion, non-tender, no calf tenderness, pelvis stable Neurologic: alert, oriented x3, responsive, motor strength/tone normal, sensory intact, speech normal Psychiatric: judgement/insight normal, memory normal, mood/affect normal, no suicidal/homicidal ideation Skin: no rash Lymphatic: normal inspection, no adenopathy Procedures Additional Procedure Procedure Narrative Right shoulder sling was applied Medical Decision Making PA Attestation All diagnoses and treatment plans were reviewed and discussed with my supervising physician Dr. Rich Diagnostic Impression: Primary Impression: Lumbar contusion Additional Impression: Shoulder contusion ER Course 58-year-old female with history of insulin dependent diabetes, CAMI, and chronic pain currently under the care of pain management and taking hydrocodone here complaining of a recent fall that occurred last night. Patient reports that she landed on her right shoulder and rolled and hit the right lower back. Denies any head injury, dizziness, loss of consciousness. Rating the pain 10 out of 10 without radiation however when reaching in her purse to find the name of the medication that she is currently taking patient appears to be in no distress and moves around comfortably. Patient reports that she is specifically allergic to ibuprofen, Tylenol, Toradol, tramadol, and many more anti-inflammatory medication. Patient appears to have a drug-seeking behavior.CURES list was extensive and patient is under the care of pain management and had an active prescription for hydrocodone which reports that she lost the medication. Patient is speaking with slurred speech however that is her baseline as she reports that is been going on for several years. Patient has an upcoming appointment with primary care physician tomorrow. Denies chest pain, shortness of breath, palpitation, no other associated symptoms. Vitals are within normal limits Ddx considered but are not limited to: Lumbar spine sprain, strain, fracture, contusion, neuropathy, shoulder sprain versus fracture versus contusion Vital signs: are WNL, pt. is afebrile H&PE are most consistent with: Lumbar contusion, shoulder contusion ORDERS: Lumbar spine x-ray, right shoulder x-ray ER intervention: tylenol 3, sling right shoulder DISCHARGE: At this time pt. is stable for d/c to home. Will provide printed patient care instructions, and any necessary prescriptions. Care plan and follow up instructions have been discussed with the patient prior to discharge. I explained to patient that patient cannot be allergic to Tylenol as she is okay with taking Tylenol 3 and also hydrocodone and 1 of the main active ingredients of these 2 medication is Tylenol. Patient follow with pain management and I explained to him that it is against a log to write for any more narcotics when she is under pain management as well as has an active prescription for narcotics. Return to emergency room if worsening symptoms Other X-Ray Diagnostic Results Other X-Ray Diagnostic Results #1: X-Ray ordered: Right shoulder # of Views/Limited Vs Complete: 3 View Indication: Pain EP Interpretation: Yes PA Xray: Interpretation reviewed, by supervising MD, and agrees with findings. Interpretation: no dislocation, no soft tissue swelling, no fractures Impression: No acute disease Electronically Signed by: Olga Abdullahi PA-C Other X-Ray Diagnostic Results #2: X-Ray ordered: Lumbar spine # of Views/Limited Vs Complete: 3 View Indication: Pain EP Interpretation: Yes PA Xray: Interpretation reviewed, by supervising MD, and agrees with findings. Interpretation: no dislocation, no soft tissue swelling, no fractures Impression: No acute disease Electronically Signed by: Olga Abdullahi PA-C Last Vital Signs Date Time Temp Pulse Resp B/P (MAP) Pulse Ox O2 Delivery O2 Flow Rate FiO2 06/23/19 19:33 86 19 Room Air 06/23/19 19:33 97.7 158/68 99 Disposition: HOME, SELF-CARE Condition: Stable Patient Instructions: Contusion, [id number] Additional Instructions: Continue taking her medication given to her by her pain management doctor at this time we cannot write you any narcotics as you are under the care of of pain management. He can continue taking low doses of [id number] ibuprofen for symptom relief. Follow-up with your primary care physician in 24 to 48 hours. If worsening symptoms return to the emergency room Olga Dyer Jun 23, 2019 20:30
[2019-06-23 20:32] VITALS: BP 145/68
--- NOTE | 2019-06-23 20:32 | NUR ---
ER DISCHARGE NOTE: Patient is cleared to be discharged per ERMD, pt is aox4, on room air, with stable vital signs. pt was given dc and prescription instructions, pt was able to verbalize understanding, pt id band removed. pt is able to ambulate with steady gait. pt took all belongings. pt was placed shoulder immobilizer
--- NOTE | 2019-06-24 11:43 | Diagnostic Imaging Report ---
Indication: Pain, trauma Technique: 3 views of the lumbar spine Comparison: None Findings:. Vertebral body heights are preserved. The disc spaces are preserved. Pedicles are intact. Sacral arches are preserved. Sacroiliac joint spaces are preserved. Impression: No acute process
--- NOTE | 2019-06-24 12:01 | Diagnostic Imaging Report ---
Indication: Pain, trauma Technique: 3 views of the right shoulder Comparison: none Findings: The bones are osteopenic. No acute fractures. No dislocations. There is suggestion of mild degenerative change of the acromioclavicular joint Impression: No acute process Evidence of bony demineralization
== END 2019-06-23 20:32 | disposition home or self-care (01) ==
LOC: EMR 19:53
DX: S30.0XXA Contusion of lower back and pelvis, initial encounter (principal); S40.011A Contusion of right shoulder, initial encounter; Z88.0 Allergy status to penicillin; Z88.6 Allergy status to analgesic agent; Z88.8 Allergy status to other drugs, medicaments and biological substances; I10 Essential (primary) hypertension; E11.9 Type 2 diabetes mellitus without complications; X58.XXXA Exposure to other specified factors, initial encounter; Y92.9 Unspecified place or not applicable
CPT/HCPCS: 72020; 73030; Z7502; 99284